=== PATIENT | female | born 1950 | race Caucasian/White ===

== ENCOUNTER → 2016-11-14 | Outpatient (CLI) | payer MEDICARE, OTHER ==
--- NOTE | 2016-11-17 08:24 | MM ---
Reason for exam: additional evaluation requested from prior study. Last mammogram was performed 1 year and 1 month ago. History: Patient is postmenopausal and has history of breast cancer at age 50. Family history of breast cancer in sister at age 49. Malignant excisional biopsy of the left breast, October 07, 2000. Benign stereotactic core biopsy of the left breast, April 11, 1999. Chemotherapy. Radiation therapy of the left breast. Took antineoplastic for 2 years. Physical Findings: Nurse did not find any significant physical abnormalities on exam. MG 3D Diag Mammo W/Cad CESIA Bilateral CC and MLO view(s) were taken. Prior study comparison: October 12, 2015, bilateral MG 3d diag mammo w/cad CESIA. October 05, 2014, bilateral MG diagnostic mammo w CAD CESIA. The breast tissue is almost entirely fat. Finding: Architectural distortion in the left breast consistent with previous surgery. No significant changes in finding since October 12, 2015 and October 05, 2014. These results were verbally communicated with the patient and result sheet given to the patient on 11/14/16. ASSESSMENT: Benign, BI-RAD 2 RECOMMENDATION: Follow-up diagnostic mammogram of both breasts in 1 year.
== END | disposition home or self-care (01) ==
LOC: RADMAMWWP 15:26
PROVIDERS: ATTEND Family Medicine
DX: Z08 Encounter for follow-up examination after completed treatment for malignant neoplasm (principal); Z85.3 Personal history of malignant neoplasm of breast
CPT/HCPCS: G0204; G0279

== ENCOUNTER 2016-12-22 10:34 | Day surgery (SDC) | payer MEDICARE, OTHER ==
[~2016-12-22 10:34] MED LIST: SODIUM CHLORIDE 0.9% 1,000 ML IV SCH
[2016-12-22 11:10] VITALS: RESP 16; TEMP 98
[2016-12-22 13:57] VITALS: BP 124/89; PULSE 70
--- NOTE | 2016-12-22 16:46 | CE ---
DATE OF SERVICE: TILT TABLE TEST: Referred by Dr. Mccabe A 12-lead ECG shows sinus rhythm, normal NC and narrow QRS, normal QT interval. Nonspecific ST-T abnormality, biphasic T waves in V3 to V6. No delta waves or epsilon waves. The tilt table test procedure. Baseline blood pressure 138/73 mmHg. Baseline heart rate 78 beats a minute. The patient was tilted upright at an angle of 70 degrees per protocol. There was no change in her heart rate or blood pressure. At the end of the procedure, she was laid supine, she remained asymptomatic. IMPRESSION: Normal heart rate and blood pressure response to upright tilting.
== END 2016-12-22 13:27 | disposition home or self-care (01) ==
LOC: CATHEP 10:34
PROVIDERS: ATTEND Internal Medicine Clinical Cardiac Electrophysiology
DX: I95.1 Orthostatic hypotension (principal); R42 Dizziness and giddiness
CPT/HCPCS: 93005; 93660

== ENCOUNTER → 2017-11-30 | Outpatient (CLI) | payer MEDICARE ==
--- NOTE | 2017-12-01 07:56 | MM ---
Reason for exam: additional evaluation requested from prior study. Last mammogram was performed 1 year and 1 month ago. History: Patient is postmenopausal and has history of breast cancer at age 50. Family history of breast cancer in sister at age 49. Malignant excisional biopsy of the left breast, October 07, 2000. Benign stereotactic core biopsy of the left breast, April 11, 1999. Chemotherapy. Radiation therapy of the left breast. Took antineoplastic for 2 years. Physical Findings: Nurse did not find any significant physical abnormalities on exam. MG 3D Diag Mammo W/Cad CESIA Bilateral CC and MLO view(s) were taken. Prior study comparison: November 14, 2016, bilateral MG 3d diag mammo w/cad CESIA. October 12, 2015, bilateral MG 3d diag mammo w/cad CESIA. There are scattered fibroglandular densities. Post surgical change redemonstrated left breast. Stable fat necrosis and oily cyst calcifications. No significant new findings when compared with previous films. These results were verbally communicated with the patient and result sheet given to the patient on 11/30/17. ASSESSMENT: Benign, BI-RAD 2 RECOMMENDATION: Routine screening mammogram of both breasts in 1 year.
== END | disposition home or self-care (01) ==
LOC: RADMAMWWP 14:09
PROVIDERS: ATTEND Family Medicine
DX: Z08 Encounter for follow-up examination after completed treatment for malignant neoplasm (principal); Z85.3 Personal history of malignant neoplasm of breast
CPT/HCPCS: 77066; G0279; 77062

== ENCOUNTER → 2018-12-27 | Outpatient (CLI) | payer MEDICARE ==
--- NOTE | 2018-12-27 16:25 | US ---
EXAMINATION TYPE: US venous doppler duplex LE LT DATE OF EXAM: 12/27/2018 3:49 PM COMPARISON: NONE CLINICAL HISTORY: M79.605 PAIN IN LT LEG. Pain in left leg. Varicose veins. SIDE PERFORMED: Left TECHNIQUE: The lower extremity deep venous system is examined utilizing real time linear array sonog geronimo with graded compression, doppler sonography and color-flow sonography. VESSELS IMAGED: External Iliac Vein (EIV) Common Femoral Vein Deep Femoral Vein Greater Saphenous Vein * Femoral Vein Popliteal Vein Small Saphenous Vein * Proximal Calf Veins (* superficial vessels) Left Leg: Negative for DVT Grayscale, color doppler, spectral doppler imaging performed of the deep veins of the left lower extr emity. There is normal flow, compressibility, vascular waveforms. IMPRESSION: No ultrasound evidence for acute DVT in the left lower extremity.
== END | disposition home or self-care (01) ==
LOC: RADUSWWP 15:00
PROVIDERS: ATTEND Family Medicine
DX: M79.605 Pain in left leg (principal)

== ENCOUNTER → 2019-01-10 | Outpatient (CLI) | payer MEDICARE ==
--- NOTE | 2019-01-12 08:11 | MM ---
Reason for exam: screening (asymptomatic). Last mammogram was performed 1 year and 1 month ago. History: Patient is postmenopausal and has history of breast cancer at age 50. Family history of breast cancer in sister at age 49. Malignant excisional biopsy of the left breast, October 07, 2000. Benign stereotactic core biopsy of the left breast, April 11, 1999. Chemotherapy. Radiation therapy of the left breast. Took antineoplastic for 2 years. Physical Findings: A clinical breast exam by your physician is recommended on an annual basis and results should be correlated with mammographic findings. MG 3D Screening Mammo W/Cad Bilateral CC and MLO view(s) were taken. Prior study comparison: November 14, 2016, bilateral MG 3d diag mammo w/cad CESIA. October 12, 2015, bilateral MG 3d diag mammo w/cad CESIA. October 05, 2014, bilateral MG diagnostic mammo w CAD CESIA. There are scattered fibroglandular densities. Post surgical and post therapy change left breast. No significant changes when compared with prior studies. ASSESSMENT: Benign, BI-RAD 2 RECOMMENDATION: Routine screening mammogram of both breasts in 1 year.
== END | disposition home or self-care (01) ==
LOC: RADMAMWWP 13:41
PROVIDERS: ATTEND Family Medicine
DX: Z12.31 Encounter for screening mammogram for malignant neoplasm of breast (principal)
CPT/HCPCS: 77063; 77067

== ENCOUNTER → 2019-01-10 | Outpatient (CLI) | payer MEDICARE ==
--- NOTE | 2019-01-10 15:11 | US ---
EXAMINATION TYPE: US thyroid st tissue head/neck DATE OF EXAM: 01/10/2019 COMPARISON: NONE CLINICAL HISTORY: R09.89, Feeling of lump in throat. No thyroid meds. GLAND SIZE: Right Lobe: 3.9 x 1.8 x 1.5 cm Overall Parenchyma: homogenous Left Lobe: 3.8 x 1.3 x 1.3 cm Overall Parenchyma: homogeneous Isthmus Thickness: 0.3 cm NODULES RIGHT: # of nodules measured on right: 0 LEFT: # of nodules measured on left: 1 1. 0.3 X 0.2 x 0.2 cm hypoechoic nodule at the mid pole with lateral margins. This nodule is tall as wide and shows no intranodular vascularity. Prior size: No prior ISTHMUS: # of nodules measured in the isthmus: 0 Bilateral neck scanned, no evidence of lymphadenopathy. IMPRESSION: Solitary subcentimeter left thyroid nodule. This does not meet criteria for fine-needle aspiration. F ollow-up in one year to ensure stability of this nodule.
== END | disposition home or self-care (01) ==
LOC: RADUSWWP 13:44
PROVIDERS: ATTEND Family Medicine
DX: E04.1 Nontoxic single thyroid nodule (principal); R09.89 Other specified symptoms and signs involving the circulatory and respiratory systems
CPT/HCPCS: 76536

== ENCOUNTER → 2020-01-25 | Outpatient (CLI) | payer MEDICARE | END | disposition home or self-care (01) | LOC: RADUSWWP 10:06 | PROVIDERS: ATTEND Family Medicine | DX: I73.9 Peripheral vascular disease, unspecified (principal); C50.919 Malignant neoplasm of unspecified site of unspecified female breast; E04.1 Nontoxic single thyroid nodule | CPT/HCPCS: 93923 ==

== ENCOUNTER → 2020-02-02 | Outpatient (CLI) | payer MEDICARE ==
--- NOTE | 2020-02-02 15:55 | US ---
EXAMINATION TYPE: US thyroid st tissue head/neck DATE OF EXAM: 02/02/2020 COMPARISON: NONE CLINICAL HISTORY: E04.1 Nontoxic single thyroid nodule. annual US GLAND SIZE: Right Lobe: 3.9 x 1.7 x 1.6 cm Overall Parenchyma: homogenous Left Lobe: 3.7 x 0.9 x 1.3 cm Overall Parenchyma: homogeneous Isthmus Thickness: 0.4 cm NODULES RIGHT: # of nodules measured on right: 0 LEFT: # of nodules measured on left: 0 ISTHMUS: # of nodules measured in the isthmus: 0 Bilateral neck scanned, no evidence of lymphadenopathy. IMPRESSION: Multiple thyroid ultrasound
== END | disposition home or self-care (01) ==
LOC: RADUSWWP 15:15
PROVIDERS: ATTEND Family Medicine
DX: E04.2 Nontoxic multinodular goiter (principal)
CPT/HCPCS: 76536

== ENCOUNTER → 2020-06-08 | Outpatient (CLI) | payer MEDICARE ==
--- NOTE | 2020-06-11 09:34 | MM ---
Reason for exam: additional evaluation requested from prior study. Last mammogram was performed 1 year and 5 months ago. History: Patient is postmenopausal and has history of breast cancer at age 50. Family history of breast cancer in sister at age 49. Malignant excisional biopsy of the left breast, October 07, 2000. Benign stereotactic core biopsy of the left breast, April 11, 1999. Chemotherapy. Radiation therapy of the left breast. Took antineoplastic for 2 years. Physical Findings: Nurse Summary: 0.5cm nodule in the left breast at 12 o'clocj (nurse TM). MG 3D Diag Mammo W/Cad CESIA Bilateral CC and MLO view(s) were taken. Prior study comparison: January 10, 2019, bilateral MG 3d screening mammo w/cad. November 30, 2017, bilateral MG 3d diag mammo w/cad CESIA. There are scattered fibroglandular densities. Asymmetric breast tissue greater in the left breast. There is no discrete abnormality including area of concern marked by BB. No significant new findings when compared with previous films. These results were verbally communicated with the patient and result sheet given to the patient on 06/08/20. ASSESSMENT: Benign, BI-RAD 2 RECOMMENDATION: Follow-up diagnostic mammogram of both breasts in 1 year.
== END | disposition home or self-care (01) ==
LOC: RADMAMWWP 14:05
PROVIDERS: ATTEND Family Medicine
DX: C50.919 Malignant neoplasm of unspecified site of unspecified female breast (principal)
CPT/HCPCS: 77066; G0279; 77062

== ENCOUNTER → 2021-04-19 | Outpatient (CLI) | payer MEDICARE ==
--- NOTE | 2021-04-19 13:41 | US ---
EXAMINATION TYPE: US thyroid st tissue head/neck DATE OF EXAM: 04/19/2021 COMPARISON: US's dated 02/02/2020 & 01/10/2019. CLINICAL HISTORY: E04.1 Nontoxic single thyroid nodule. GLAND SIZE: Right Lobe: 4.5 x 1.6 x 1.9 cm Overall Parenchyma: homogenous Left Lobe: 4.8 x 1.1 x 1.4 cm Overall Parenchyma: homogeneous Isthmus Thickness: 0.4 cm NODULES RIGHT: # of nodules measured on right: 1 1. 0.5 X 0.3 x 0.5 cm, lower medial, cystic or almost completely cystic, hypoechoic nodule, which i s wider than tall, with smooth margins, without echogenic foci. Prior size: not seen on prior LEFT: # of nodules measured on left: 0 ISTHMUS: # of nodules measured in the isthmus: 0 Bilateral neck scanned, no evidence of lymphadenopathy. IMPRESSION: Subcentimeter right thyroid nodule measuring a maximal dimension of 5 mm. Mild thyromegaly. 2017 ACR TI-RADS LEVEL: TR-RADS 2 - Not Suspicious: No FNA *Highest TI-RADS level nodule reported
== END | disposition home or self-care (01) ==
LOC: RADUSWWP 12:58
PROVIDERS: ATTEND Family Medicine
DX: E04.1 Nontoxic single thyroid nodule (principal)
CPT/HCPCS: 76536

== ENCOUNTER → 2021-06-10 | Outpatient (CLI) | payer MEDICARE ==
--- NOTE | 2021-06-10 15:07 | MM ---
Reason for exam: additional evaluation requested from prior study. Last mammogram was performed 1 year ago. History: Patient is postmenopausal and has history of breast cancer at age 50. Family history of breast cancer in sister at age 49. Malignant excisional biopsy of the left breast, October 07, 2000. Benign stereotactic core biopsy of the left breast, April 11, 1999. Chemotherapy. Radiation therapy of the left breast. Took antineoplastic for 2 years. Physical Findings: Nurse did not find any significant physical abnormalities on exam. MG 3D Diag Mammo W/Cad CESIA Bilateral CC and MLO view(s) were taken. Prior study comparison: June 08, 2020, bilateral MG 3d diag mammo w/cad CESIA. January 10, 2019, bilateral MG 3d screening mammo w/cad. The breast tissue is heterogeneously dense. This may lower the sensitivity of mammography. Stable benign calcifications. Stable post operative changes left breast. No significant new findings when compared with previous films. These results were verbally communicated with the patient and result sheet given to the patient on 06/10/21. ASSESSMENT: Benign, BI-RAD 2 RECOMMENDATION: Routine screening mammogram of both breasts in 1 year.
== END | disposition home or self-care (01) ==
LOC: RADMAMWWP 13:44
PROVIDERS: ATTEND Family Medicine
DX: R92.1 Mammographic calcification found on diagnostic imaging of breast (principal)
CPT/HCPCS: 77066; G0279; 77062

== ENCOUNTER 2021-12-04 09:53 | Day surgery (SDC) | payer MEDICARE ==
[2021-12-03 08:28] VITALS: BMI 29.2
[~2021-12-04 09:53] MED LIST changes: +ASPIRIN 325 MG TAB PO PRN; -SODIUM CHLORIDE 0.9% 1,000 ML IV SCH; +SODIUM CHLORIDE 0.9% 1,000 ML in EMPTY BAG 1 BAG IV ONE
[2021-12-04 10:16] LABS: Glucose,Whole Blood 127 mg/dL (75-99)
[2021-12-04 11:41] LABS: African American GFR (CKD) >90 (>60 ml/min/1.73 sqM); Anion Gap 3 mmol/L; Blood Urea Nitrogen 26 mg/dL (7-17); Calcium 9.4 mg/dL (8.4-10.2); Carbon Dioxide 28 mmol/L (22-30); Chloride 110 mmol/L (98-107); Glucose 114 mg/dL (74-99); Non-African American GFR(CKD) 88 (>60 ml/min/1.73 sqM); Potassium 3.9 mmol/L (3.5-5.1); Sodium 141 mmol/L (137-145)
[2021-12-04] MEDS ORDERED: HEPARIN SODIUM 1,000 UN/ML (10ML VL) ONE (12:22)
[2021-12-04] MEDS ORDERED: MIDAZOLAM 2 MG/2 ML VIAL IV ONE (12:37)
[2021-12-04] MEDS ORDERED: LIDOCAINE 1% INJ 10MG/ML (30 ML VIAL-PF) SQ ONE (12:38)
[2021-12-04] MEDS ORDERED: HYDROmorphone 0.5 MG/0.5 ML SYRINGE IVP ONE (12:39)
[2021-12-04] MEDS ORDERED: HEPARIN SODIUM 1,000 UN/ML (10ML VL) IV ONE (12:55)
[2021-12-04] MEDS ORDERED: CLOPIDOGREL 75 MG TAB ONE ×2 (13:40)
[2021-12-04] MEDS ORDERED: CLOPIDOGREL 75 MG TAB PO ONE (13:42)
[2021-12-04] MEDS ORDERED: IOPAMIDOL-250 100ML BTL INTRAARTER ONE (13:42)
[2021-12-04] MEDS ORDERED: MECLIZINE 25 MG TAB PO PRN (13:46)
[2021-12-04] MEDS ORDERED: NALOXONE 0.4 MG/ML 1 ML VIAL IVP PRN (13:48)
--- NOTE | 2021-12-04 13:55 | P.PCN ---
Date of Procedure: 12/04/21 Operative Findings: PERCUTANEOUS PERIPHERAL INTERVENTION Performing physician Danyel Guerrier M.D. Procedure performed #1 successful stenting of the right and left common iliac arteries using 7.0 x 59 mm balloon expandable stent with an excellent angiographic result #2 intravascular ultrasound of the aorta and left common iliac and left external iliac artery #3 selective angiogram of the right and left common iliac arteries and external iliac arteries and common femoral arteries #4 ultrasound-guided access of the right and left common femoral arteries Indication Severe bilateral lower extremities intermittent claudication in this 71-year-old female patient was underwent an angiogram which revealed critical right iliac and occluded left iliac artery and also occluded bilateral SFA and left popliteal Approach Right and left common femoral arteries Complications None Level of sedation Moderate with a sedation time of 63 minutes Procedure description After obtaining an informed consent the patient was brought to the cardiac lab engineer. The right and left common femoral artery where cannulated using micropuncture technique under ultrasound guidance, the micropuncture wire passed easily then place a 6-[place]oz[place] 23 cm bright tip at the right and left common femoral arteries or 035 wires. The lesion in the left common iliac artery was crossed using an 035 stiff Glidewire. Subsequently I did advanced an 035 catheter over the wire and injected contrast through the catheter to prove that I was in the true lumen. After that I did intravascular ultrasound of the left common iliac artery which revealed a diameter of 8 mm. Subsequently I did balloon angioplasty of both iliacs using 6 mm balloon. After that I deployed 7.0 x 59 mm stent which was balloon expandable stents in both stents were positioned under fluoroscopy guidance and deployed under fluoroscopy guidance as well. I postdilated using 8 mm balloon. The stents and the balloon done in a kissing technique. The final angiogram showed excellent angiographic results and the procedure was completed without any complications After that I did exchange my long sheath into short sheath using 035 stiff Glidewire then I did selective bilateral common femoral arteries angiogram The procedure was completed without any complications Postprocedure management #1 dual antiplatelet therapy #2 aggressive cholesterol control #3 risk factors modification #4 follow-up with the patient
[2021-12-04] MEDS ORDERED: SODIUM CHLORIDE 0.9% 1,000 ML in EMPTY BAG 1 BAG IV SCH (14:00)
[2021-12-04 17:17] LABS: Glucose,Whole Blood 187 mg/dL (75-99)
[2021-12-04 19:55] LABS: Glucose,Whole Blood 282 mg/dL (75-99)
[2021-12-04] MEDS ORDERED: ATORVASTATIN 40 MG TAB PO SCH (21:00)
[2021-12-04] MEDS ORDERED: ALPRAZolam 0.5 MG TAB PO SCH (21:00)
[2021-12-05 07:35] LABS: Glucose,Whole Blood 128 mg/dL (75-99)
[2021-12-05] MEDS ORDERED: ACETAMINOPHEN TAB 325 MG TAB PO PRN (07:57)
[2021-12-05 08:25] VITALS: BP 119/72; PULSE 93; RESP 17; TEMP 98.3
[2021-12-05] MEDS ORDERED: NON FORMULARY DRUG (Flaxseed Oil [Omega-3 Flaxseed Oil] 1,000 MG Capsule) PO SCH (09:00)
[2021-12-05] MEDS ORDERED: LOSARTAN 50 MG TAB PO SCH (09:00)
[2021-12-05] MEDS ORDERED: MONTELUKAST 10 MG TAB PO SCH (09:00)
[2021-12-05] MEDS ORDERED: ASCORBIC ACID 500 MG TAB PO SCH (09:00)
[2021-12-05] MEDS ORDERED: [UNRECOGNIZED DRUG - OTHER] PO SCH (09:00)
[2021-12-05] MEDS ORDERED: FENOFIBRATE 160 MG TAB PO SCH (09:00)
[2021-12-05] MEDS ORDERED: CLOPIDOGREL 75 MG TAB PO SCH (09:00)
[2021-12-05] MEDS ORDERED: LORATADINE 10 MG TAB PO SCH (09:00)
[2021-12-05] MEDS ORDERED: FATTY ACIDS PO SCH (09:00)
[2021-12-05] MEDS ORDERED: NON FORMULARY DRUG (Vitamin B Complex [Vitamin B Complex] 1 EACH Capsule) PO SCH (09:00)
[2021-12-05] MEDS ORDERED: FISH OIL PO SCH (09:00)
[2021-12-05] MEDS ORDERED: CALCIUM CARBONATE 500 MG CHEWABLE PO SCH (09:00)
[2021-12-05] MEDS ORDERED: CHOLECALCIFEROL 25 MCG (1000 IU) TABLET PO SCH (09:00)
[2021-12-05] MEDS ORDERED: OMEGA PO SCH (09:00)
--- NOTE | 2021-12-05 09:21 | US ---
EXAMINATION TYPE: US groin LT DATE OF EXAM: 12/05/2021 COMPARISON: NONE CLINICAL HISTORY: Rule out aneurysm. Left side pain iliac stents put in yesterday. Exam appears within normal limits. IMPRESSION: 1. Vascular flow appears normal. No obstruction is evident. No pseudoaneurysm is evident.
[2021-12-05] MEDS ORDERED: ASPIRIN 81 MG PO SCH (12:30)
[2021-12-05 14:54] LABS: Glucose,Whole Blood 110 mg/dL (75-99)
[2021-12-05 16:58] LABS: African American GFR (CKD) >90 (>60 ml/min/1.73 sqM); Non-African American GFR(CKD) 85 (>60 ml/min/1.73 sqM)
--- NOTE | 2021-12-05 21:28 | P.DS ---
Providers Attending physician: Danyel Guerrier Primary care physician: [facility] Course: The patient is a pleasant 81-year-old female patient who underwent yesterday successful stenting of the right and left common iliac arteries from bilateral groin approach She was seen this morning. The right groin is soft and nontender. Left groin is soft and tender. I was concerned about pseudoaneurysm. I performed an ultrasound and that came in to be unremarkable. The patient felt better later on during the day. She is going to be discharged on dual antiplatelet therapy and statin and follow up with the patient in a week Plan - Discharge Summary Discharge Rx Participant: No New Discharge Prescriptions: New Clopidogrel [Plavix] 75 mg PO DAILY tab Continue Alendronate Sodium 70 mg PO WE Atorvastatin [Lipitor] 40 mg PO HS Calcium Carbonate [Calcium] 600 mg PO DAILY Cholecalciferol (Vitamin D3) [Vitamin D3] 4,000 unit PO DAILY Fenofibrate 160 mg PO DAILY flaxseed oiL [[place]-3 Flaxseed Oil] 1,300 mg PO DAILY Loratadine 10 mg PO DAILY Montelukast [Singulair] 10 mg PO DAILY [place]-3 Fatty Acids/Fish Oil [Fish Oil 1,000 mg Capsule] 1 cap PO DAILY Vitamin B Complex 1 cap PO DAILY ALPRAZolam [Xanax] 0.5 mg PO HS Ascorbic Acid [Vitamin C] 1,000 mg PO DAILY Losartan Potassium [Cozaar] 100 mg PO DAILY Meclizine [Antivert] 25 mg PO DAILY PRN PRN Reason: dizziness Aspirin [Adult Low Dose Aspirin EC] 81 mg PO W/LUNCH Discontinued metFORMIN HCL [Glucophage] 1,000 mg PO AC-LUNCH Discharge Medication List Alendronate Sodium 70 mg PO WE 12/19/16 [History] Atorvastatin [Lipitor] 40 mg PO HS 12/19/16 [History] Calcium Carbonate [Calcium] 600 mg PO DAILY 12/19/16 [History] Cholecalciferol (Vitamin D3) [Vitamin D3] 4,000 unit PO DAILY 12/19/16 [History] Fenofibrate 160 mg PO DAILY 12/19/16 [History] Loratadine 10 mg PO DAILY 12/19/16 [History] Montelukast [Singulair] 10 mg PO DAILY 12/19/16 [History] [place]-3 Fatty Acids/Fish Oil [Fish Oil 1,000 mg Capsule] 1 cap PO DAILY 12/19/16 [History] Vitamin B Complex 1 cap PO DAILY 12/19/16 [History] flaxseed oiL [[place]-3 Flaxseed Oil] 1,300 mg PO DAILY 12/19/16 [History] ALPRAZolam [Xanax] 0.5 mg PO HS 11/22/21 [History] Ascorbic Acid [Vitamin C] 1,000 mg PO DAILY 11/22/21 [History] Aspirin [Adult Low Dose Aspirin EC] 81 mg PO W/LUNCH 11/22/21 [History] Losartan Potassium [Cozaar] 100 mg PO DAILY 11/22/21 [History] Meclizine [Antivert] 25 mg PO DAILY PRN 11/22/21 [History] Clopidogrel [Plavix] 75 mg PO DAILY tab 12/05/21 [Rx] Follow up Appointment(s)/Referral(s): Danyel Guerrier MD [STAFF PHYSICIAN] - 12/07/21 9:15 am Patient Instructions/Handouts: *Surgery [facility] - After Heart Catheterization - Service Tech Instructions Activity/Diet/Wound Care/Special Instructions: Please hold your metformin for 2 days and then you can restart. Plavix Prescription- Please use paper script by Dr. Guerrier to obtain prescription You may take tylenol for pain Discharge Disposition: HOME SELF-CARE
--- NOTE | 2021-12-06 12:29 | IR ---
EXAMINATION TYPE: IR stent intravas non coronary DATE OF EXAM: 12/04/2021 CLINICAL HISTORY: Bilateral pain. TECHNIQUE: Fluoroscopy. COMPARISON: None. FINDINGS: Fluoroscopic guidance was provided during pelvic angiogram with lower extremity angiogram procedure performed by Dr. Guerrier. A total of 12.9 minutes of fluoroscopic time was utilized during t he procedure and 2026 spot images are acquired. Please refer to procedure note for further details. IMPRESSION: As Above.
[2021-12-11] MEDS ORDERED: NON FORMULARY DRUG (Alendronate Sodium [Alendronate Sodium] 70 MG Tablet) PO SCH (09:00)
== END 2021-12-05 15:40 | disposition home or self-care (01) ==
LOC: CATHCVL 09:53 → 6NMEDSUR 15:12 → CATHCVL 12-05 15:40
PROVIDERS: ATTEND Internal Medicine Interventional Cardiology
DX: I70.213 Atherosclerosis of native arteries of extremities with intermittent claudication, bilateral legs (principal); E11.51 Type 2 diabetes mellitus with diabetic peripheral angiopathy without gangrene; I10 Essential (primary) hypertension; E78.5 Hyperlipidemia, unspecified; Z20.822 Contact with and (suspected) exposure to COVID-19; Z79.899 Other long term (current) drug therapy; Z79.84 Long term (current) use of oral hypoglycemic drugs; Z79.82 Long term (current) use of aspirin; Z82.49 Family history of ischemic heart disease and other diseases of the circulatory system
CPT/HCPCS: 37221; 37252; 80048; 82565; 87635; 76882; C1769 ×5; C1894 ×2; C1725; C1753; C1876; C1760; J2250; J2001; J1644; J1170; Q9966

== ENCOUNTER 2022-02-20 08:03 | Day surgery (SDC) | payer MEDICARE ==
[2022-02-19 09:12] VITALS: BMI 28.8
--- NOTE | 2022-02-20 07:22 | P.GSHP ---
History of Present Illness H&P Date: 02/20/22 CHIEF COMPLAINT: Colon screen HISTORY OF PRESENT ILLNESS: The patient is a 71-year-old female who presents for colon screen. Lower endoscopy was offered for further evaluation and management. PAST MEDICAL HISTORY: Please see list. PAST SURGICAL HISTORY: Please see list. MEDICATIONS: Please see list. ALLERGIES: Please see list. SOCIAL HISTORY: No illicit drug use FAMILY HISTORY: No reports of Crohn disease or ulcerative colitis. REVIEW OF ORGAN SYSTEMS: CONSTITUTIONAL: No reports of fevers or chills. PHYSICAL EXAM: VITAL SIGNS: Stable GENERAL: Well-developed pleasant in no acute distress. HEENT: No scleral icterus. Extraocular movements grossly intact. Moist buccal mucosa. NECK: Supple without lymphadenopathy. CHEST: Unlabored respirations. Equal bilateral excursions. CARDIOVASCULAR: Regular rate and rhythm. Distal 2+ pulses. ABDOMEN: Soft, nontender, nondistended. MUSCULOSKELETAL: No clubbing, cyanosis, or edema. ASSESSMENT: 1. Colon screen. PLAN: 1. Recommend proceeding with a lower endoscopy Past Medical History Past Medical History: Cancer, Diabetes Mellitus, Hyperlipidemia, Hypertension, Vascular Disorder Additional Past Medical History / Comment(s): Hx left breast cancer- tx with CHEMO and RADIATION, vertigo. History of Any Multi-Drug Resistant Organisms: None Reported Past Surgical History: Breast Surgery, Orthopedic Surgery Additional Past Surgical History / Comment(s): Left breast lumpectomy, left ankle ORIF, benign left groin tumor removed, has 1 stent in each leg. Past Anesthesia/Blood Transfusion Reactions: No Reported Reaction Past Psychological History: No Psychological Hx Reported Smoking Status: Former smoker Past Alcohol Use History: Rare Additional Past Alcohol Use History / Comment(s): Quit smoking in her 20's. Past Drug Use History: None Reported - Past Family History Sister(s) Family Medical History: Cancer Brother(s) Family Medical History: Cancer Mother Family Medical History: Cancer, CVA/TIA Medications and Allergies Home Medications Medication Instructions Recorded Confirmed Type Alendronate Sodium 70 mg PO WE 12/19/16 02/14/22 History Atorvastatin [Lipitor] 40 mg PO HS 12/19/16 02/14/22 History Calcium Carbonate [Calcium] 600 mg PO DAILY 12/19/16 02/19/22 History Cholecalciferol (Vitamin D3) 3,000 unit PO DAILY 12/19/16 02/19/22 History [Vitamin D3] Fenofibrate 160 mg PO DAILY 12/19/16 02/14/22 History Loratadine 10 mg PO DAILY 12/19/16 02/14/22 History Montelukast [Singulair] 10 mg PO QAM 12/19/16 02/14/22 History Vitamin B Complex 1 cap PO DAILY 12/19/16 02/19/22 History ALPRAZolam [Xanax] 0.5 mg PO HS 11/22/21 02/14/22 History Ascorbic Acid [Vitamin C] 1,000 mg PO DAILY 11/22/21 02/19/22 History Aspirin [Adult Low Dose Aspirin EC] 81 mg PO W/LUNCH 11/22/21 02/19/22 History Losartan Potassium [Cozaar] 100 mg PO QAM 11/22/21 02/14/22 History Meclizine [Antivert] 25 mg PO DAILY PRN 11/22/21 02/04/22 History Clopidogrel [Plavix] 75 mg PO DAILY tab 12/05/21 02/19/22 Rx metFORMIN HCL [Glucophage] 1,000 mg PO 1200 02/14/22 02/19/22 History Allergies Allergy/AdvReac Type Severity Reaction Status Date / Time No Known Allergies Allergy Verified 02/19/22 08:46
[~2022-02-20 08:03] MED LIST changes: -ASPIRIN 325 MG TAB PO PRN; +LACTATED RINGERS 1,000 ML IV SCH; +LIDOCAINE 1% (10MG/ML) FOR IV START INTRADERMA PRN; -SODIUM CHLORIDE 0.9% 1,000 ML in EMPTY BAG 1 BAG IV ONE
[2022-02-20 08:38] VITALS: TEMP 97.3
[2022-02-20] MEDS ORDERED: LIDOCAINE 2% INJ 20 MG/ML (2 ML VIAL) ONE (08:59)
[2022-02-20] MEDS ORDERED: PROPOFOL 10 MG/ML 20 ML VIAL IV ONE (08:59)
[2022-02-20 09:35] VITALS: RESP 16
--- NOTE | 2022-02-20 09:41 | P.PCN ---
Date of Procedure: 02/20/22 Description of Procedure: PREOPERATIVE DIAGNOSIS: Personal history of colon polyps Family history malignant colon polyps Abnormal fecal studies POSTOPERATIVE DIAGNOSIS: Tubular adenoma hepatic flexure Sigmoid diverticulosis Internal hemorrhoids, grade 3 OPERATION: Colonoscopy to the ileocecal valve and appendiceal orifice, cecum Colonoscopy with hot snare polypectomy SURGEON: Jennifer Strauss MD. ANESTHESIA: MAC. INDICATIONS: The patient is an 71-year-old male who presents family history of malignant colon polyps and personal history of colon polyps. Last colonoscopy over 5 years. Benefits and risks were described and informed consent was obtained. DESCRIPTION OF PROCEDURE: The patient had undergone Sutab prep. The patient had been brought into the operating room and laid in the left lateral decubitus position. After adequate intravenous sedation, the rectum was examined with 2% lidocaine jelly. External hemorrhoids were encountered. The rectal tone was within normal limits. No lesions were palpated in the rectal vault. An Olympus colonoscope was advanced until the cecum, ileocecal valve and appendiceal orifice were clearly viewed. The prep was fair. Sigmoid diverticulosis was encountered. Colonic polyps were found and removed. No evidence of focal colitis was found. Retroflexion of the scope demonstrated grade 3 internal hemorrhoids without active bleeding or inflammation. The colon was desufflated. Withdrawal time was over 6 minutes. During procedure, patient had emesis. Patient reports she had drank fluids prior to procedure. FINDINGS: Aronchick preparation quality scale 2+ (1-5) Internal hemorrhoids, grade 3 External hemorrhoids, grade 3. No arteriovenous malformations. Sigmoid diverticulosis Removal of 2 polyps: - Snare polypectomy transverse colon 2, 5 to 6 mm tubulovillous adenoma polyp. No focal colitis. RECOMMENDATIONS: Repeat colonoscopy in 3 years, 2024. Plan - Discharge Summary Discharge Rx Participant: No New Discharge Prescriptions: Continue Alendronate Sodium 70 mg PO WE Atorvastatin [Lipitor] 40 mg PO HS Calcium Carbonate [Calcium] 600 mg PO DAILY Cholecalciferol (Vitamin D3) [Vitamin D3] 3,000 unit PO DAILY Fenofibrate 160 mg PO DAILY Loratadine 10 mg PO DAILY Montelukast [Singulair] 10 mg PO QAM Vitamin B Complex 1 cap PO DAILY ALPRAZolam [Xanax] 0.5 mg PO HS Ascorbic Acid [Vitamin C] 1,000 mg PO DAILY Losartan Potassium [Cozaar] 100 mg PO QAM Meclizine [Antivert] 25 mg PO DAILY PRN PRN Reason: dizziness Clopidogrel [Plavix] 75 mg PO DAILY tab metFORMIN HCL [Glucophage] 1,000 mg PO 1200 Aspirin [Adult Low Dose Aspirin EC] 81 mg PO W/LUNCH Discharge Medication List Alendronate Sodium 70 mg PO WE 12/19/16 [History] Atorvastatin [Lipitor] 40 mg PO HS 12/19/16 [History] Calcium Carbonate [Calcium] 600 mg PO DAILY 12/19/16 [History] Cholecalciferol (Vitamin D3) [Vitamin D3] 3,000 unit PO DAILY 12/19/16 [History] Fenofibrate 160 mg PO DAILY 12/19/16 [History] Loratadine 10 mg PO DAILY 12/19/16 [History] Montelukast [Singulair] 10 mg PO QAM 12/19/16 [History] Vitamin B Complex 1 cap PO DAILY 12/19/16 [History] ALPRAZolam [Xanax] 0.5 mg PO HS 11/22/21 [History] Ascorbic Acid [Vitamin C] 1,000 mg PO DAILY 11/22/21 [History] Aspirin [Adult Low Dose Aspirin EC] 81 mg PO W/LUNCH 11/22/21 [History] Losartan Potassium [Cozaar] 100 mg PO QAM 11/22/21 [History] Meclizine [Antivert] 25 mg PO DAILY PRN 11/22/21 [History] Clopidogrel [Plavix] 75 mg PO DAILY tab 12/05/21 [Rx] metFORMIN HCL [Glucophage] 1,000 mg PO 1200 02/14/22 [History] Follow up Appointment(s)/Referral(s): Jennifer Strauss MD [STAFF PHYSICIAN] - As Needed Patient Instructions/Handouts: Colorectal Polyps (GEN), *Surgery [facility] - (Anesthesia) Endoscopy Discharge Instructions, Colonoscopy (DC) Activity/Diet/Wound Care/Special Instructions: Repeat colonoscopy in 3 years, 2024 Discharge Disposition: HOME SELF-CARE
[2022-02-20 10:06] VITALS: BP 160/86; PULSE 79
== END 2022-02-20 10:22 | disposition home or self-care (01) ==
LOC: ORWHC2ENDO 08:03
PROVIDERS: ATTEND Surgery Plastic and Reconstructive Surgery
DX: R19.5 Other fecal abnormalities (principal); D12.3 Benign neoplasm of transverse colon; K57.30 Diverticulosis of large intestine without perforation or abscess without bleeding; K64.2 Third degree hemorrhoids; K64.4 Residual hemorrhoidal skin tags; Z86.010 Personal history of colon polyps; Z80.0 Family history of malignant neoplasm of digestive organs; E11.9 Type 2 diabetes mellitus without complications; E78.5 Hyperlipidemia, unspecified; I10 Essential (primary) hypertension; F41.9 Anxiety disorder, unspecified; Z85.3 Personal history of malignant neoplasm of breast; Z92.21 Personal history of antineoplastic chemotherapy; Z92.3 Personal history of irradiation; I99.9 Unspecified disorder of circulatory system; Z95.820 Peripheral vascular angioplasty status with implants and grafts; Z98.890 Other specified postprocedural states; Z80.9 Family history of malignant neoplasm, unspecified; Z82.3 Family history of stroke; Z79.84 Long term (current) use of oral hypoglycemic drugs; Z79.02 Long term (current) use of antithrombotics/antiplatelets; Z79.899 Other long term (current) drug therapy
CPT/HCPCS: 88305; 45385; J2704; J2001

== ENCOUNTER → 2022-11-19 | Outpatient (CLI) | payer MEDICARE ==
[2022-11-19 21:09] LABS: African American GFR (CKD) 76.2 (60.0-200.0); Anion Gap 10.8 mmol/L (10.00-18.00); Blood Urea Nitrogen 24.3 mg/dL (9.0-27.0); Carbon Dioxide 26.1 mmol/L (20.0-27.5); Non-African American GFR(CKD) 65.7 (60.0-200.0); Potassium 4.7 mmol/L (3.5-5.5)
[2022-11-19 21:39] LABS: HCT 41.6 % (37.2-46.3); HGB 12.8 g/dL (12.0-15.0); MCH 28.3 pg (27.0-32.0); MCHC 30.8 g/dL (32.0-37.0); Mean Platelet Volume 10.4 fL (9.5-12.2); NRBC Per 100 WBC 0 /100 WBCS (0.0-0.0); Platelet Count 322 X 10*3/uL (140-440); RBC 4.52 X 10*6/uL (4.10-5.20); RDW 12.8 % (11.5-14.5); WBC 7.43 X 10*3/uL (4.50-10.00)
== END | disposition home or self-care (01) ==
LOC: LABPAT 14:59
PROVIDERS: ATTEND Internal Medicine Interventional Cardiology
DX: Z01.812 Encounter for preprocedural laboratory examination (principal); I70.213 Atherosclerosis of native arteries of extremities with intermittent claudication, bilateral legs
CPT/HCPCS: 80051; 82565; 84520; 85027

== ENCOUNTER 2022-11-26 07:37 | Day surgery (SDC) | payer MEDICARE ==
[2022-11-24 09:40] VITALS: BMI 28.3
[~2022-11-26 07:37] MED LIST changes: +ALPRAZolam 0.25 MG TAB PO PRN; +ASPIRIN 325 MG TAB PO PRN; -LACTATED RINGERS 1,000 ML IV SCH; -LIDOCAINE 1% (10MG/ML) FOR IV START INTRADERMA PRN; +SODIUM CHLORIDE 0.9% 1,000 ML in EMPTY BAG 1 BAG IV ONE
[2022-11-26] MEDS ORDERED: SODIUM CHLORIDE 0.9% 1,000 ML IV ONE (08:02)
[2022-11-26] MEDS ORDERED: CLOPIDOGREL 75 MG TAB ONE ×2 (08:08→12:51)
[2022-11-26 08:16] LABS: Glucose,Whole Blood 108 mg/dL (70-110)
[2022-11-26] MEDS ORDERED: LIDOCAINE 1% INJ 10MG/ML (20 ML MDV) ONE (09:43)
[2022-11-26] MEDS ORDERED: LIDOCAINE 1% INJ 10MG/ML (20 ML MDV) SQ ONE (09:50)
[2022-11-26] MEDS ORDERED: MIDAZOLAM 2 MG/2 ML VIAL IV ONE (09:50)
[2022-11-26] MEDS ORDERED: HEPARIN SODIUM 1,000 UN/ML (10ML VL) ONE (09:56)
[2022-11-26] MEDS: HEPARIN SODIUM 1,000 UN/ML (10ML VL) IV ONE ×3 (10:02→11:04)
[2022-11-26] MEDS ORDERED: SODIUM CHLORIDE 0.9% 500 ML 500 ML with niCARdipine 6.25 MG, NITROGLYCERIN-D5W PMX 0.05... IV ONE ×4 (10:40)
[2022-11-26] MEDS ORDERED: HYDROmorphone 0.5 MG/0.5 ML SYRINGE IVP ONE ×3 (11:54→15:13)
[2022-11-26] MEDS ORDERED: fentaNYL (PF) 50 MCG/ML 2 ML AMP ONE (11:55)
[2022-11-26] MEDS: fentaNYL (PF) 50 MCG/ML 2 ML AMP IVP ONE ×2 (11:56→12:23)
[2022-11-26] MEDS ORDERED: HEPARIN SODIUM 1,000 UN/ML (10ML VL) IVP ONE ×2 (12:00→12:07)
[2022-11-26] MEDS ORDERED: IOPAMIDOL-250 100ML BTL INTRAARTER ONE ×2 (12:24)
[2022-11-26] MEDS ORDERED: niCARdipine 25 MG/10 ML VIAL ONE (12:34)
[2022-11-26] MEDS ORDERED: niCARdipine Syringe (1,000 mcg/10 mL) INTRAARTER ONE (12:35)
[2022-11-26] MEDS ORDERED: NITROGLYCERIN 1000MCG/10ML SYRINGE INTRAARTER ONE (12:35)
[2022-11-26] MEDS ORDERED: MECLIZINE 25 MG TAB PO PRN (12:46)
[2022-11-26] MEDS ORDERED: NALOXONE 0.4 MG/ML 1 ML VIAL IVP PRN (12:50)
[2022-11-26] MEDS ORDERED: CLOPIDOGREL 75 MG TAB PO ONE (12:52)
[2022-11-26] MEDS ORDERED: SODIUM CHLORIDE 0.9% 1,000 ML in EMPTY BAG 1 BAG IV SCH (13:00)
--- NOTE | 2022-11-26 13:48 | IR ---
EXAMINATION TYPE: IR stent intravas non coronary DATE OF EXAM: 11/26/2022 COMPARISON: NONE HISTORY: Fluoroscopy time. Fluoroscopy was provided to the referring clinician.
[2022-11-26 17:54] LABS: Glucose,Whole Blood 137 mg/dL (70-110)
--- NOTE | 2022-11-26 19:13 | P.PCN ---
Date of Procedure: 11/26/22 Operative Findings: PERCUTANEOUS PERIPHERAL INTERVENTION Performing physician Danyel Guerrier M.D. Procedure performed 1. Successful stenting left popliteal and left SFA using ZilverPTX drug-coated stents 2. Adjunctive use of shockwave balloon and IVUS 3. Left lower extremity angiogram 4. Right common femoral artery angiogram 5. Ultrasound guided access of the right common femoral artery and left anterior tibial are 6. Placement of sheath in the left anterior tibial artery Indication Left lower extremities intermittent claudication in this 72-year-old female patient who is known to have severe PAD and known to have occluded left SFA. She was brought today to undergo SENIOR CONSTRUCTION ESTIMATOR of the left SFA Approach Right common femoral artery and left anterior tibial artery Complications None Level of sedation Moderate with a sedation time of 2 hours Procedure description After obtaining an informed consent the patient was brought to cardiac roofing laborer. The right common femoral artery was cannulated using micropuncture technique under ultrasound guidance, the micropuncture wire passed easily then I placed a 6-[place] 70 cm sheath. Anticoagulation was initiated using heparin with continuous ACT monitoring. Subsequently I did selective left common iliac artery using 5-[place] rim catheter with 035 stiff Glidewire. After that I did advanced the over the wire and the catheter to the left common femoral artery. Subsequently the wire and dilator were removed and the sheath was flushed. Left lower oximetry angiogram was performed and showed long area of chronic total occlusion of the left SFA and left popliteal. Attempting crossing the CONVEYOR CONSOLE OPERATOR in antegrade technique was unsuccessful. At that point I decided to cross the CONVEYOR CONSOLE OPERATOR in retrograde technique. I accessed the left anterior tibial artery using micropuncture technique under ultrasound guidance, the micropuncture wire passed easily then I place a 5-[place] sheath. The SideArm of the sheath was connected to a combination off nitroglycerin and verapamil and heparin. Subsequently I was able to cross the chronic total occlusion of the left popliteal and left SFA in retrograde technique and the wire was advanced all the way to the left common femoral artery. I was able to snare the wire from above. Subsequently I did intravascular ultrasound and that showed that I was in the submentalalmost all the way. I did angioplasty of the left SFA using chocolate balloon and also balloon angioplasty of the left popliteal using shockwave balloon. After that I deployed 4 stents. I deployed 1 stents in the left popliteal and 3 stents in the left SFA. Final angiogram was performed and showed excellent angiographic results and the procedure was completed was no complication. After that I did exchange my long sheath into short sheath using 035 stiff Glidewire before I did selective right common femoral artery angiogram. The procedure was completed there was no complication Postprocedure management 1. Dual antiplatelet therapy 2. Aggressive cholesterol control 3. Risk factors modification 4. Follow-up with the patient
[2022-11-26 20:50] LABS: Glucose,Whole Blood 176 mg/dL (70-110)
[2022-11-26] MEDS ORDERED: ATORVASTATIN 40 MG TAB PO SCH (21:00)
[2022-11-26] MEDS ORDERED: ALPRAZolam 0.5 MG TAB PO SCH (21:00)
[2022-11-26] MEDS: HYDROmorphone 0.5 MG/0.5 ML SYRINGE IVP PRN (23:58)
[2022-11-27] MEDS: HYDROmorphone 0.5 MG/0.5 ML SYRINGE IVP PRN ×2 (04:15→08:17)
[2022-11-27 05:44] LABS: African American GFR (CKD) >90 (>60 ml/min/1.73 sqM); Non-African American GFR(CKD) 89 (>60 ml/min/1.73 sqM)
--- NOTE | 2022-11-27 07:31 | P.DS ---
Providers Attending physician: Danyel Guerrier Primary care physician: [facility] Course: The patient is a pleasant 73-year-old female patient was underwent yesterday successful NEWSPAPER INSERTER of the left SFA and left popliteal She was seen this morning beach she seems to be asymptomatic and hemodynamic stable. The patient is going to be discharged on dual antiplatelet therapy and statin and I'll follow-up with the patient next week in the office Plan - Discharge Summary Discharge Rx Participant: No New Discharge Prescriptions: Continue Atorvastatin [Lipitor] 40 mg PO HS Calcium Carbonate [Calcium] 600 mg PO DAILY Cholecalciferol (Vitamin D3) [Vitamin D3] 3,000 unit PO DAILY Fenofibrate 160 mg PO DAILY Loratadine 10 mg PO DAILY Montelukast [Singulair] 10 mg PO QAM Vitamin B Complex 1 cap PO DAILY ALPRAZolam [Xanax] 0.5 mg PO HS Ascorbic Acid [Vitamin C] 1,000 mg PO DAILY Losartan Potassium [Cozaar] 100 mg PO QAM Meclizine [Antivert] 25 mg PO DAILY PRN PRN Reason: dizziness Clopidogrel [Plavix] 75 mg PO DAILY tab Aspirin [Adult Low Dose Aspirin EC] 81 mg PO W/LUNCH Discontinued metFORMIN HCL [Glucophage] 1,000 mg PO 1200 Discharge Medication List Atorvastatin [Lipitor] 40 mg PO HS 12/19/16 [History] Calcium Carbonate [Calcium] 600 mg PO DAILY 12/19/16 [History] Cholecalciferol (Vitamin D3) [Vitamin D3] 3,000 unit PO DAILY 12/19/16 [History] Fenofibrate 160 mg PO DAILY 12/19/16 [History] Loratadine 10 mg PO DAILY 12/19/16 [History] Montelukast [Singulair] 10 mg PO QAM 12/19/16 [History] Vitamin B Complex 1 cap PO DAILY 12/19/16 [History] ALPRAZolam [Xanax] 0.5 mg PO HS 11/22/21 [History] Ascorbic Acid [Vitamin C] 1,000 mg PO DAILY 11/22/21 [History] Aspirin [Adult Low Dose Aspirin EC] 81 mg PO W/LUNCH 11/22/21 [History] Losartan Potassium [Cozaar] 100 mg PO QAM 11/22/21 [History] Meclizine [Antivert] 25 mg PO DAILY PRN 11/22/21 [History] Clopidogrel [Plavix] 75 mg PO DAILY tab 12/05/21 [Rx] Follow up Appointment(s)/Referral(s): Danyel Guerrier MD [STAFF PHYSICIAN] - 1 Week
[2022-11-27 08:49] VITALS: BP 114/75; PULSE 80; RESP 18; TEMP 98.4
[2022-11-27] MEDS ORDERED: LORATADINE 10 MG TAB PO SCH (09:00)
[2022-11-27] MEDS ORDERED: MONTELUKAST 10 MG TAB PO SCH (09:00)
[2022-11-27] MEDS ORDERED: CHOLECALCIFEROL 25 MCG (1000 IU) TABLET PO SCH (09:00)
[2022-11-27] MEDS ORDERED: LOSARTAN 50 MG TAB PO SCH (09:00)
[2022-11-27] MEDS ORDERED: FENOFIBRATE 160 MG TAB PO SCH (09:00)
[2022-11-27] MEDS ORDERED: CALCIUM CARBONATE 500 MG CHEWABLE PO SCH (09:00)
[2022-11-27] MEDS ORDERED: ASCORBIC ACID 500 MG TAB PO SCH (09:00)
[2022-11-27] MEDS ORDERED: CLOPIDOGREL 75 MG TAB PO SCH (09:00)
[2022-11-27] MEDS ORDERED: NON FORMULARY DRUG (Vitamin B Complex [Vitamin B Complex] 1 EACH Capsule) PO SCH (09:00)
[2022-11-27] MEDS ORDERED: ASPIRIN 81 MG PO SCH (12:30)
== END 2022-11-27 10:40 | disposition home or self-care (01) ==
LOC: CATHCVL 07:37 → 6NMEDSUR 16:06 → CATHCVL 11-27 10:40
PROVIDERS: ATTEND Internal Medicine Interventional Cardiology
DX: I73.9 Peripheral vascular disease, unspecified (principal); I65.23 Occlusion and stenosis of bilateral carotid arteries; E78.5 Hyperlipidemia, unspecified; I10 Essential (primary) hypertension; Z82.49 Family history of ischemic heart disease and other diseases of the circulatory system; Z79.82 Long term (current) use of aspirin; Z79.899 Other long term (current) drug therapy
CPT/HCPCS: 37226; 37252; 82565; C1769 ×6; C1773; C1894 ×4; C1887; C1725 ×4; C1714; C1753; C1874 ×2; C9764; J2250; J2001; J3010; J1644 ×2; J1170 ×2; Q9966; 92978

== ENCOUNTER → 2022-12-11 | Outpatient (CLI) | payer MEDICARE ==
[~2022-12-11] MED LIST changes: -ALPRAZolam 0.25 MG TAB PO PRN; -ASPIRIN 325 MG TAB PO PRN; +DENOSUMAB 60 MG/ML 1 ML SYRINGE SQ NR; -SODIUM CHLORIDE 0.9% 1,000 ML in EMPTY BAG 1 BAG IV ONE
[2022-12-11 13:09] VITALS: BP 106/69; PULSE 82; RESP 16; TEMP 97.2
== END ==
LOC: PROCWHC3 12:54
PROVIDERS: ATTEND Family Medicine
DX: M81.0 Age-related osteoporosis without current pathological fracture (principal)
CPT/HCPCS: 96372; J0897

== ENCOUNTER 2023-05-11 19:34 | Emergency (ER) | payer MEDICARE ==
--- NOTE | 2023-05-11 20:18 | ED ---
Abdominal Pain HPI - General Source: RN notes reviewed <Susana Darden - Last Filed: 05/11/23 20:18> - General Source: RN notes reviewed, old records reviewed Limitations: no limitations - History of Present Illness MD Complaint: abdominal pain -: week(s) (3) Location: epigastric, suprapubic Radiation: epigastric, suprapubic Migration to: suprapubic Severity scale (1-10): 7 Quality: stabbing, aching, sharp Consistency: constant Improves With: nothing Worsens With: nothing Associated Symptoms: nausea Treatments Prior to Arrival: other (0) <Deion Elliott - Last Filed: 05/18/23 00:26> - General Stated Complaint: abd pain Time Seen by Provider: 05/11/23 20:18 - History of Present Illness Initial Comments: Patient is a 72-year-old female who presents the emergency department for abdominal pain in the left lower abdomen for 3 weeks (Susana Darden) This is a 72-year-old female DF for evaluation of dull pain left lower quadrant abdominal pain persistent here in the ER epigastric abdominal pain suprapubic abdominal pain at times. Patient does have some bruising to her anterior abdomen no current nausea vomiting or fevers. No change in bowel or stools. Patient states symptoms again for 3 weeks but being persisting currently. (Deion Reynoso) - Related Data Home Medications Medication Instructions Recorded Confirmed Atorvastatin [Lipitor] 40 mg PO HS 12/19/16 12/11/22 Calcium Carbonate [Calcium] 600 mg PO DAILY 12/19/16 12/11/22 Cholecalciferol (Vitamin D3) 3,000 unit PO DAILY 12/19/16 12/11/22 [Vitamin D3] Fenofibrate 160 mg PO DAILY 12/19/16 12/11/22 Loratadine 10 mg PO DAILY 12/19/16 12/11/22 Montelukast [Singulair] 10 mg PO QA 12/19/16 12/11/22 Vitamin B Complex 1 cap PO DAILY 12/19/16 12/11/22 ALPRAZolam [Xanax] 0.5 mg PO HS 11/22/21 12/11/22 Ascorbic Acid [Vitamin C] 1,000 mg PO DAILY 11/22/21 12/11/22 Aspirin [Adult Low Dose Aspirin EC] 81 mg PO W/LUNCH 11/22/21 12/11/22 Losartan Potassium [Cozaar] 100 mg PO QAM 11/22/21 12/11/22 Meclizine [Antivert] 25 mg PO DAILY PRN 11/22/21 12/11/22 Previous Rx's Medication Instructions Recorded Clopidogrel [Plavix] 75 mg PO DAILY tab 12/05/21 Allergies Allergy/AdvReac Type Severity Reaction Status Date / Time No Known Allergies Allergy Verified 05/11/23 20:19 Review of Systems ROS Other: All systems not noted in ROS Statement are negative. <Susana Darden - Last Filed: 05/11/23 20:18> ROS Other: All systems not noted in ROS Statement are negative. <Deion Elliott - Last Filed: 05/18/23 00:26> ROS Statement: Those systems with pertinent positive or pertinent negative responses have been documented in the HPI. Past Medical History Past Medical History: Cancer, Diabetes Mellitus, Hyperlipidemia, Hypertension, Vascular Disorder Additional Past Medical History / Comment(s): Hx left breast cancer- tx with CHEMO and RADIATION, vertigo. History of Any Multi-Drug Resistant Organisms: None Reported Past Surgical History: Breast Surgery, Orthopedic Surgery Additional Past Surgical History / Comment(s): Left breast lumpectomy, left ankle ORIF, benign left groin tumor removed, has 1 stent in each leg. Past Anesthesia/Blood Transfusion Reactions: No Reported Reaction Smoking Status: Former smoker - Past Family History Sister(s) Family Medical History: Cancer Brother(s) Family Medical History: Cancer Mother Family Medical History: Cancer, CVA/TIA <Susana Darden - Last Filed: 05/11/23 20:18> General Exam <Susana Darden - Last Filed: 05/11/23 20:18> General appearance: alert, in no apparent distress Head exam: Present: atraumatic, normocephalic, normal inspection Eye exam: Present: normal appearance, PERRL, EOMI. Absent: scleral icterus, conjunctival injection, periorbital swelling ENT exam: Present: normal exam, mucous membranes moist Neck exam: Present: normal inspection. Absent: tenderness, meningismus, lymphadenopathy Respiratory exam: Present: normal lung sounds bilaterally. Absent: respiratory distress, wheezes, rales, rhonchi, stridor Cardiovascular Exam: Present: regular rate, normal rhythm, normal heart sounds. Absent: systolic murmur, diastolic murmur, rubs, gallop, clicks GI/Abdominal exam: Present: soft, normal bowel sounds. Absent: distended, tenderness, guarding, rebound, rigid Extremities exam: Present: normal inspection, full ROM, normal capillary refill. Absent: tenderness, pedal edema, joint swelling, calf tenderness Back exam: Present: normal inspection Neurological exam: Present: alert, oriented X3, CN II-XII intact Psychiatric exam: Present: normal affect, normal mood Skin exam: Present: warm, dry, intact, normal color. Absent: rash <Deion Elliott - Last Filed: 05/18/23 00:26> - General Exam Comments Initial Comments: Visual Physical Exam Vital signs reviewed General: Well-appearing, nontoxic, no acute distress. Head: Normocephalic, atraumatic Eyes: PERRLA, EOMI ENT: Airway patent Chest: Nonlabored breathing Skin: No visual rash, normal skin tone Neuro: Alert and oriented 3 Musculoskeletal: No gross abnormalities (Susana Darden) Course <Deion Elliott - Last Filed: 05/18/23 00:26> Vital Signs 05/11/23 05/11/23 20:16 22:07 Temperature 98.3 F Pulse Rate 88 80 Respiratory 20 18 Rate Blood Pressure 122/78 150/92 O2 Sat by Pulse 95 95 Oximetry - Reevaluation(s) Reevaluation #1: 05/11/23 23:38 Medical record is reviewed (Deion Elliott) Reevaluation #2: 05/11/23 23:38 Patient hasn't improved pain here in the ER (Deion Elliott) Reevaluation #3: 05/11/23 23:38 Patient informed results and questions answered (Deion Elliott) Reevaluation #4: 05/11/23 23:38 Was pt. sent in by a medical professional or institution (, PA, PHYSICAL THERAPY ASST, urgent care, hospital, or fci...) When possible be specific @ -no Did you speak to anyone other than the patient for history (EMS, parent, family, police, friend...)? What history was obtained from this source @ -no Did you review nursing and triage notes (agree or disagree)? Why? @ -agree Are old charts reviewed (outside hosp., previous admission, EMS record, old EKG, old radiological studies, urgent care reports/EKG's, fci records)? Report findings @ -yes Differential Diagnosis (chest pain, altered mental status, abdominal pain women, abdominal pain men, vaginal bleeding, weakness, fever, dyspnea, syncope, headache, dizziness, GI bleed, back pain, seizure, CVA, palpatations, mental health, musculoskeletal)? @ -prior EKG interpreted by me (3pts min.). @ -no X-rays interpreted by me (1pt min.). @ -no CT interpreted by me (1pt min.). @ -yes U/S interpreted by me (1pt. min.). @ -no What testing was considered but not performed or refused? (CT, X-rays, U/S, labs)? Why? @ -none What meds were considered but not given or refused? Why? @ -none Did you discuss the management of the patient with other professionals (professionals i.e. DrBonny, PA, PHYSICAL THERAPY ASST, lab, RT, psych nurse, social scientist, call or contact centre team leader, teacher, fire information officer, dependency case manager)? Give summary @ -no Was smoking cessation discussed for >3mins.? @ -no Was critical care preformed (if so, how long)? @ -no Were there social determinants of health that impacted care today? How? (Homelessness, low income, unemployed, alcoholism, drug addiction, transportation, low edu. Level, literacy, decrease access to med. care, prison, rehab)? @ -none Was there de-escalation of care discussed even if they declined (Discuss DNR or withdrawal of care, Hospice)? DNR status @ -no What co-morbidities impacted this encounter? (DM, HTN, Smoking, COPD, CAD, Cancer, CVA, ARF, Chemo, Hep., AIDS, mental health diagnosis, sleep apnea, morbid obesity)? @ -none Was patient admitted / discharged? Hospital course, mention meds given and route, prescriptions, significant lab abnormalities, going to OR and other pertinent info. @ - 72 female to the emergency department today for evaluation of abdominal pain nonspecific abdominal pain here in the ER no significant abdominal tenderness normal lab tests normal computed tomography scan patient can be discharged home Discharge Undiagnosed new problem with uncertain prognosis? @ -no Drug Therapy requiring intensive monitoring for toxicity (Heparin, Nitro, Insulin, Cardizem)? @ -no Were any procedures done? @ -no Diagnosis/symptom? @ -Abdominal pain Acute, or Chronic, or Acute on Chronic? @ -Acute Uncomplicated (without systemic symptoms) or Complicated (systemic symptoms)? @ -Complicated Side effects of treatment? @ -no Exacerbation, Progression, or Severe Exacerbation? @ -exacerbation Poses a threat to life or bodily function? How? (Chest pain, USA, MS, pneumonia, PE, COPD, DKA, ARF, appy, cholecystitis, CVA, Diverticulitis, Homicidal, Suicidal, threat to staff... and all critical care pts) @ -no (Deion Elliott) Reevaluation #5: 05/11/23 23:39 Differential Abdominal Pain Women: Appendicitis, Cholecystitis, diverticulosis, ischemic bowel, pancreatitis, hepatitis, UTI, gastroenteritis, AAA, incarcerated hernia, bowel obstruction, constipation, inflammatory bowel, hepatitis, peptic ulcer disease, splenic i nfarction, perforated viscus, vulvitis, ovarian torsion, PID, kidney stone, placenta abruption, this is not meant to be an all-inclusive list (Deion Elliott) Medical Decision Making <Susana Darden - Last Filed: 05/11/23 20:18> - Lab Data Result diagrams: 05/11/23 20:48 05/11/23 20:48 - Radiology Data Radiology results: report reviewed (CT head and pelvis is negative for acute disease), image reviewed <Deion Elliott - Last Filed: 05/18/23 00:26> - Medical Decision Making I performed the QuickNote portion of this chart - Susana Darden PA-C (Susana Darden) 72 female to the emergency department today for evaluation of abdominal pain nonspecific abdominal pain here in the ER no significant abdominal tenderness normal lab tests normal computed tomography scan patient can be discharged home (Deion Elliott) - Lab Data Lab Results 05/11/23 05/11/23 05/11/23 Range/Units 20:48 20:48 20:48 WBC 8.3 (3.8-10.6) k/uL RBC 4.34 (3.80-5.40) m/uL Hgb 12.7 (11.4-16.0) gm/dL Hct 38.5 (34.0-46.0) % MCV 88.6 (80.0-100.0) fL MCH 29.2 (25.0-35.0) pg MCHC 33.0 (31.0-37.0) g/dL RDW 13.2 (11.5-15.5) % Plt Count 322 (150-450) k/uL MPV 8.0 Neutrophils % 64 % Lymphocytes % 24 % Monocytes % 6 % Eosinophils % 3 % Basophils % 1 % Neutrophils # 5.3 (1.3-7.7) k/uL Lymphocytes # 2.0 (1.0-4.8) k/uL Monocytes # 0.5 (0-1.0) k/uL Eosinophils # 0.3 (0-0.7) k/uL Basophils # 0.1 (0-0.2) k/uL Sodium 143 (137-145) mmol/L Potassium 4.1 (3.5-5.1) mmol/L Chloride 104 (98-107) mmol/L Carbon Dioxide 29 (22-30) mmol/L Anion Gap 10 mmol/L BUN 36 H (7-17) mg/dL Creatinine 0.88 (0.52-1.04) mg/dL Est GFR (CKD-EPI)AfAm 76 (>60 ml/min/1.73 sqM) Est GFR (CKD-EPI)NonAf 66 (>60 ml/min/1.73 sqM) Glucose 135 H (74-99) mg/dL Plasma Lactic Acid Jono (0.7-2.0) mmol/L Calcium 10.4 H (8.4-10.2) mg/dL Total Bilirubin 0.4 (0.2-1.3) mg/dL AST 30 (14-36) U/L ALT 38 H (4-34) U/L Alkaline Phosphatase 42 (38-126) U/L Total Protein 7.7 (6.3-8.2) g/dL Albumin 4.6 (3.5-5.0) g/dL Lipase 107 (23-300) U/L Urine Color Yellow Urine Appearance Clear (Clear) Urine pH 5.0 (5.0-8.0) Ur Specific [place] 1.025 (1.001-1.035) Urine Protein Negative (Negative) Urine Glucose (UA) Negative (Negative) Urine Ketones Negative (Negative) Urine Blood Negative (Negative) Urine Nitrite Negative (Negative) Urine Bilirubin Negative (Negative) Urine Urobilinogen <2.0 (<2.0) mg/dL Ur Leukocyte Esterase Moderate (Negative) Urine RBC 6 H (0-5) /hpf Urine WBC 6 H (0-5) /hpf Ur Squamous Epith Cells 1 (0-4) /hpf Urine Bacteria Rare H (None) /hpf Hyaline Casts 3 H (0-2) /lpf Urine Mucus Rare H (None) /hpf 05/11/23 Range/Units 20:48 WBC (3.8-10.6) k/uL RBC (3.80-5.40) m/uL Hgb (11.4-16.0) gm/dL Hct (34.0-46.0) % MCV (80.0-100.0) fL MCH (25.0-35.0) pg MCHC (31.0-37.0) g/dL RDW (11.5-15.5) % Plt Count (150-450) k/uL MPV Neutrophils % % Lymphocytes % % Monocytes % % Eosinophils % % Basophils % % Neutrophils # (1.3-7.7) k/uL Lymphocytes # (1.0-4.8) k/uL Monocytes # (0-1.0) k/uL Eosinophils # (0-0.7) k/uL Basophils # (0-0.2) k/uL Sodium (137-145) mmol/L Potassium (3.5-5.1) mmol/L Chloride (98-107) mmol/L Carbon Dioxide (22-30) mmol/L Anion Gap mmol/L BUN (7-17) mg/dL Creatinine (0.52-1.04) mg/dL Est GFR (CKD-EPI)AfAm (>60 ml/min/1.73 sqM) Est GFR (CKD-EPI)NonAf (>60 ml/min/1.73 sqM) Glucose (74-99) mg/dL Plasma Lactic Acid Jono 1.0 (0.7-2.0) mmol/L Calcium (8.4-10.2) mg/dL Total Bilirubin (0.2-1.3) mg/dL AST (14-36) U/L ALT (4-34) U/L Alkaline Phosphatase (38-126) U/L Total Protein (6.3-8.2) g/dL Albumin (3.5-5.0) g/dL Lipase (23-300) U/L Urine Color Urine Appearance (Clear) Urine pH (5.0-8.0) Ur Specific [place] (1.001-1.035) Urine Protein (Negative) Urine Glucose (UA) (Negative) Urine Ketones (Negative) Urine Blood (Negative) Urine Nitrite (Negative) Urine Bilirubin (Negative) Urine Urobilinogen (<2.0) mg/dL Ur Leukocyte Esterase (Negative) Urine RBC (0-5) /hpf Urine WBC (0-5) /hpf Ur Squamous Epith Cells (0-4) /hpf Urine Bacteria (None) /hpf Hyaline Casts (0-2) /lpf Urine Mucus (None) /hpf Disposition <Susana Darden - Last Filed: 05/11/23 20:18> Is patient prescribed a controlled substance at d/c from ED?: No Time of Disposition: 22:55 <Deion Elliott - Last Filed: 05/18/23 00:26> Clinical Impression: Abdominal pain Disposition: HOME SELF-CARE Condition: Good Instructions (If sedation given, give patient instructions): Abdominal Pain (ED) Referrals: Heriberto Walls DO [Primary Care Provider] - 1-2 days Essie Rodriguez MD [STAFF PHYSICIAN] - 1-2 days
[2023-05-11 20:27] VITALS: TEMP 98.3
[2023-05-11 21:03] LABS: Basophils # (A) 0.1 k/uL (0-0.2); Basophils % (A) 1 %; Eosinophils # (A) 0.3 k/uL (0-0.7); Eosinophils % (A) 3 %; HCT 38.5 % (34.0-46.0); HGB 12.7 gm/dL (11.4-16.0); Lymphocytes % (A) 24 %; MCH 29.2 pg (25.0-35.0); MCV 88.6 fL (80.0-100.0); Monocytes # (A) 0.5 k/uL (0-1.0); Monocytes % (A) 6 %; Neutrophils # (A) 5.3 k/uL (1.3-7.7); Neutrophils % (A) 64 %; Platelet Count 322 k/uL (150-450); RBC 4.34 m/uL (3.80-5.40); RDW 13.2 % (11.5-15.5); WBC 8.3 k/uL (3.8-10.6)
[2023-05-11 21:31] LABS: ALT 38 U/L (4-34); AST 30 U/L (14-36); African American GFR (CKD) 76 (>60 ml/min/1.73 sqM); Albumin 4.6 g/dL (3.5-5.0); Alkaline Phosphatase 42 U/L (38-126); Anion Gap 10 mmol/L; Blood Urea Nitrogen 36 mg/dL (7-17); Calcium 10.4 mg/dL (8.4-10.2); Carbon Dioxide 29 mmol/L (22-30); Chloride 104 mmol/L (98-107); Glucose 135 mg/dL (74-99); Lipase 107 U/L (23-300); Non-African American GFR(CKD) 66 (>60 ml/min/1.73 sqM); Potassium 4.1 mmol/L (3.5-5.1); Sodium 143 mmol/L (137-145); Total Bilirubin 0.4 mg/dL (0.2-1.3); Total Protein 7.7 g/dL (6.3-8.2)
[2023-05-11 21:42] LABS: Bacteria,Urine Rare /hpf; Hyaline Casts,Urine 3 /lpf (0-2); Mucus,Urine Rare /hpf; RBC,Urine 6 /hpf (0-5); Squamous Epithelial Cell,Urine 1 /hpf (0-4); WBC,Urine 6 /hpf (0-5)
[2023-05-11 21:44] LABS: Appearance,Urine Clear (Clear); Color,Urine Yellow; Glucose,Urine (UA) Negative (Negative); Protein,Urine Negative (Negative); Specific Gravity,Urine 1.025 (1.001-1.035)
[2023-05-11 21:45] LABS: Bilirubin,Urine Negative (Negative); Blood,Urine Negative (Negative); Ketones,Urine Negative (Negative); Leukocyte Esterase,Urine Moderate (Negative); Nitrite,Urine Negative (Negative); Urobilinogen,Urine <2.0 mg/dL (<2.0)
[2023-05-11 22:10] VITALS: BP 150/92; PULSE 80; RESP 18
[2023-05-11] MEDS ORDERED: SODIUM CHLORIDE 0.9% 1,000 ML IV STA (22:11)
--- NOTE | 2023-05-11 22:33 | CT ---
EXAM: CT Abdomen and Pelvis With Intravenous Contrast CLINICAL HISTORY: ITS.REASON CT Reason: pain TECHNIQUE: Axial computed tomography images of the abdomen and pelvis with intravenous contrast. CTDI is 18.9 mGy and DLP is 897.7 mGy-cm. This CT exam was performed using one or more of the following dose reduction techniques: automated exposure control, adjustment of the mA and/or kV according to patient size, and/or use of iterative reconstruction technique. COMPARISON: No relevant prior studies available. FINDINGS: Lung bases: Unremarkable. No mass. No consolidation. ABDOMEN: Liver: Hepatic steatosis. Gallbladder and bile ducts: Contracted gallbladder. No calcified stones. No ductal dilation. Pancreas: Unremarkable. No mass. No ductal dilation. Spleen: Unremarkable. No splenomegaly. Adrenals: Unremarkable. No mass. Kidneys and ureters: Unremarkable. No hydronephrosis or delayed nephrogram. Stomach and bowel: Diverticulosis, without acute diverticulitis. No small bowel obstruction. No free intraperitoneal air. PELVIS: Appendix: Normal appendix. Bladder: Decompressed urinary bladder. Reproductive: Atrophied uterus. ABDOMEN and PELVIS: Intraperitoneal space: Unremarkable. No free air. No significant fluid collection. Bones/joints: Degenerative changes of the spine. No acute fracture. No dislocation. Soft tissues: Unremarkable. Vasculature: Atherosclerotic changes of the aorta. No abdominal aortic aneurysm. Lymph nodes: Unremarkable. No enlarged lymph nodes. IMPRESSION: 1. No hydronephrosis or delayed nephrogram. 2. Normal appendix. 3. Hepatic steatosis. 4. Diverticulosis, without acute diverticulitis. No small bowel obstruction. No free intraperitoneal air.
== END 2023-05-11 23:23 | disposition home or self-care (01) ==
LOC: EC 19:34
DX: R10.13 Epigastric pain (principal); R10.32 Left lower quadrant pain; E11.9 Type 2 diabetes mellitus without complications; I10 Essential (primary) hypertension; E78.5 Hyperlipidemia, unspecified; Z87.891 Personal history of nicotine dependence; Z79.82 Long term (current) use of aspirin; Z79.899 Other long term (current) drug therapy
CPT/HCPCS: 36415; 80053; 83605; 83690; 85025; 81001; 74177; 99284; 96360; Q9967

== ENCOUNTER → 2023-05-28 | Outpatient (CLI) | payer MEDICARE ==
[2023-05-28 14:36] VITALS: BP 105/72; PULSE 80; RESP 16; TEMP 98.1
== END ==
LOC: PROCWHC3 13:39
PROVIDERS: ATTEND Family Medicine
DX: M81.0 Age-related osteoporosis without current pathological fracture (principal)
CPT/HCPCS: 96372; J0897

== ENCOUNTER → 2023-07-15 | Outpatient (CLI) | payer MEDICARE ==
--- NOTE | 2023-07-15 15:43 | XR ---
EXAMINATION TYPE: XR chest 2V DATE OF EXAM: 07/15/2023 COMPARISON: None INDICATION: Physical TECHNIQUE: Frontal and lateral views of the chest are obtained. FINDINGS: The heart size is normal. The pulmonary vasculature is normal. There is some opacification and silhouetting of the left heart border. Some atelectasis may be presen t within the lingula. On more chronic changes could be considered. Surgical clips are within the left breast and axillary region. Scoliosis is within the thoracic spine. IMPRESSION: 1. Silhouetting the left heart border. Correlate for atelectasis. Follow-up chest x-ray can be perfor med.
== END | disposition home or self-care (01) ==
LOC: RADXRMAIN 15:21
PROVIDERS: ATTEND Family Medicine
DX: R09.89 Other specified symptoms and signs involving the circulatory and respiratory systems (principal)
CPT/HCPCS: 71046

== ENCOUNTER → 2023-09-23 | Outpatient (CLI) | payer MEDICARE ==
--- NOTE | 2023-09-27 17:57 | MM ---
Reason for Exam: Screening (asymptomatic). Last screening mammogram was performed 12 month(s) ago. Patient History: Menarche at age 12. First Full-Term at age 19. Postmenopausal. Breast cancer, left, age 50. Previous chest radiation therapy at age 50. Previous chemotherapy at age 50. 10/07/2000, Malignant Excisional Biopsy on the left side. 04/11/1999, Benign Stereotactic Core Biopsy on the left side. Radiation Therapy, left. Chemotherapy. Sister had breast cancer, age 49. Prior Study Comparison: 06/08/2020 Bilateral Diagnostic Mammogram, [facility]. 06/10/2021 Bilateral Diagnostic Mammogram, [facility]. 09/16/2022 Bilateral MG 3D screening mammo w/cad, [facility]. Tissue Density: There are scattered areas of fibroglandular density. Findings: Analyzed By CAD. Postsurgical and posttreatment changes redemonstrated on the left. There is no suspicious group of microcalcifications or new suspicious mass in either breast. Overall Assessment: Benign, BI-RAD 2 Management: Screening Mammogram of both breasts in 1 year. . Patient should continue monthly self-breast exams. A clinical breast exam by your physician is recommended on an annual basis. This exam should not preclude additional follow-up of suspicious palpable abnormalities. Electronically signed and approved by: Wolf Crowe M.D. Radiologist
== END | disposition home or self-care (01) ==
LOC: RADMAMWWP 15:04
PROVIDERS: ATTEND Family Medicine
DX: Z12.31 Encounter for screening mammogram for malignant neoplasm of breast (principal); Z85.3 Personal history of malignant neoplasm of breast; Z80.3 Family history of malignant neoplasm of breast; Z78.0 Asymptomatic menopausal state
CPT/HCPCS: 77063; 77067

== ENCOUNTER → 2023-09-23 | Outpatient (CLI) | payer MEDICARE ==
--- NOTE | 2023-09-23 15:50 | XR ---
EXAMINATION TYPE: XR chest 2V DATE OF EXAM: 09/23/2023 COMPARISON: 07/15/2023. HISTORY: Pain. TECHNIQUE: Frontal and lateral views of the chest are obtained. FINDINGS: There is no focal consolidative change. The cardiac silhouette is mildly enlarged and the pulmonary vessels are within normal limits. Surgical clips are seen within the left axilla. IMPRESSION: No acute cardiopulmonary process.
== END | disposition home or self-care (01) ==
LOC: RADXRMAIN 15:30
PROVIDERS: ATTEND Family Medicine
DX: R09.89 Other specified symptoms and signs involving the circulatory and respiratory systems (principal); R07.9 Chest pain, unspecified
CPT/HCPCS: 71046

== ENCOUNTER → 2024-04-21 | Outpatient (CLI) | payer MEDICARE ==
--- NOTE | 2024-04-21 13:29 | MM ---
Reason for Exam: Follow-up at short interval from prior study. Last screening mammogram was performed 7 month(s) ago. Patient History: Menarche at age 12. First Full-Term at age 19. Postmenopausal. Breast cancer, left, age 50. Previous chest radiation therapy at age 50. Previous chemotherapy at age 50. 10/07/2000, Malignant Excisional Biopsy on the left side. 04/11/1999, Benign Stereotactic Core Biopsy on the left side. Radiation Therapy, left. Chemotherapy. Sister had breast cancer, age 49. Prior Study Comparison: 06/10/2021 Bilateral Diagnostic Mammogram, [facility]. 09/16/2022 Bilateral MG 3D screening mammo w/cad, [facility]. 09/23/2023 Bilateral MG 3D screening mammo w/cad, [facility]. Tissue Density: Left: The breasts are almost entirely fatty. Findings: Analyzed By CAD. Postoperative distortion from prior lumpectomy. No evidence for recurrent or residual mass. No mass at the site of clinical concern however ultrasound is advised. Benign dystrophic calcifications identified. Overall Assessment: Incomplete: need additional imaging evaluation, BI-RAD 0 Management: Diagnostic Breast Ultrasound of the left breast. . Results were given to the patient verbally at the time of exam. Patient should continue monthly self-breast exams. A clinical breast exam by your physician is recommended on an annual basis. This exam should not preclude additional follow-up of suspicious palpable abnormalities. Note on Haley scores and lifetime risk: 1. A Haley score greater than 3% is considered moderate risk. If this is the case, consider specialist referral to assess eligibility for a risk reducing agent. 2. If overall lifetime risk for the development of breast cancer is 20% or higher, the patient may qualify for future screening with alternating mammogram and breast MRI. [facility], , 04/21/2024 1:26 PM. Electronically signed and approved by: Howard Montana M.D. Radiologis
--- NOTE | 2024-04-21 13:45 | USB ---
Reason for Exam: Clinical finding. Patient History: Menarche at age 12. First Full-Term at age 19. Postmenopausal. Breast cancer, left, age 50. Previous chest radiation therapy at age 50. Previous chemotherapy at age 50. 10/07/2000, Malignant Excisional Biopsy on the left side. 04/11/1999, Benign Stereotactic Core Biopsy on the left side. Radiation Therapy, left. Chemotherapy. Sister had breast cancer, age 49. Technique: Method: Targeted. Prior Study Comparison: 06/10/2021 Bilateral Diagnostic Mammogram, [facility]. 09/16/2022 Bilateral MG 3D screening mammo w/cad, [facility]. 09/23/2023 Bilateral MG 3D screening mammo w/cad, [facility]. Findings: The area of palpable concern of the left breast, the lower inner quadrant of the left breast, the axilla of the left breast and the retroareolar of the left breast were scanned. No solid or cystic masses are identified.. Overall Assessment: Negative, BI-RAD 1 Management: Screening Mammogram of both breasts in 6 months. A clinical breast exam by your physician is recommended on an annual basis and results should be correlated with mammographic findings. This exam should not preclude additional follow-up of suspicious palpable abnormalities. Results were given to the patient verbally at the time of exam. [facility], , 04/21/2024 1:42 PM. Electronically signed and approved by: Howard Montana M.D. Radiologis
== END | disposition home or self-care (01) ==
LOC: RADMAMWWP 13:03
PROVIDERS: ATTEND Family Medicine
CPT/HCPCS: 77061; 77065

== ENCOUNTER 2024-08-03 11:42 | Day surgery (SDC) | payer MEDICARE ==
[~2024-08-03 11:42] MED LIST changes: +ALPRAZolam 0.25 MG TAB PO PRN; -DENOSUMAB 60 MG/ML 1 ML SYRINGE SQ NR
[2024-08-03 13:59] LABS: Glucose,Whole Blood 101 mg/dL (70-110)
[2024-08-03 14:07] LABS: Basophils # (A) 0.1 k/uL (0-0.2); Basophils % (A) 1 %; Eosinophils # (A) 0.2 k/uL (0-0.7); Eosinophils % (A) 2 %; HCT 39.5 % (34.0-46.0); Lymphocytes # (A) 1.9 k/uL (1.0-4.8); Lymphocytes % (A) 18 %; MCH 28.7 pg (25.0-35.0); MCHC 32.8 g/dL (31.0-37.0); MCV 87.5 fL (80.0-100.0); Mean Platelet Volume 7.4; Monocytes # (A) 0.5 k/uL (0-1.0); Monocytes % (A) 5 %; Neutrophils # (A) 7.6 k/uL (1.3-7.7); Neutrophils % (A) 73 %; Platelet Count 286 k/uL (150-450); RBC 4.51 m/uL (3.80-5.40); RDW 12.9 % (11.5-15.5); WBC 10.5 k/uL (3.8-10.6)
[2024-08-03] MEDS: IV FLUID CONTINUATION 1,000 ML IV ONE (14:09)
[2024-08-03 14:22] LABS: African American GFR (CKD) >90 (>60 ml/min/1.73 sqM); Anion Gap 8 mmol/L; Blood Urea Nitrogen 17 mg/dL (7-17); Calcium 9.4 mg/dL (8.4-10.2); Carbon Dioxide 32 mmol/L (22-30); Chloride 100 mmol/L (98-107); Glucose 113 mg/dL (74-99); Non-African American GFR(CKD) 85 (>60 ml/min/1.73 sqM); Potassium 4.3 mmol/L (3.5-5.1); Sodium 140 mmol/L (137-145)
[2024-08-03] MEDS: HEPARIN SODIUM,PORCINE 10,000 UNIT in SODIUM CHLORIDE 0.9% 1,000 ML IRRIGATION ONE (15:00)
[2024-08-03] MEDS: MIDAZOLAM 2 MG/2 ML VIAL IVP ONE (15:16)
[2024-08-03] MEDS: fentaNYL (PF) 50 MCG/ML 2 ML AMP IVP ONE (15:52)
[2024-08-03] MEDS: niCARdipine Syringe (1,000 mcg/10 mL) INTRAARTER ONE (15:56)
[2024-08-03] MEDS: CLOPIDOGREL 75 MG TAB PO ONE (16:04)
[2024-08-03] MEDS ORDERED: MECLIZINE 25 MG TAB PO PRN (16:10)
[2024-08-03] MEDS: IOPAMIDOL-250 100ML BTL INTRAARTER ONE (16:12)
[2024-08-03] MEDS ORDERED: NALOXONE 0.4 MG/ML 1 ML VIAL IVP PRN (16:12)
--- NOTE | 2024-08-03 18:21 | IR ---
EXAMINATION TYPE: IR angio abdominal w runoff DATE OF EXAM: 08/03/2024 CLINICAL HISTORY: Left leg pain. TECHNIQUE: Fluoroscopy. COMPARISON: None. FINDINGS: Fluoroscopic guidance was provided during abdominal angiogram with lower extremity runoff procedure performed by Dr. Guerrier. A total of 10.3 minutes of fluoroscopic time was utilized during th e procedure and 238 spot images was acquired. Please refer to procedure note for further details. TOTAL DAP = 6.88 Gy x cm2. IMPRESSION: As Above. [facility], , 08/03/2024 6:19 PM
--- NOTE | 2024-08-03 19:05 | P.PCN ---
Date of Procedure: 08/03/24 Operative Findings: An aortogram with runoff and percutaneous peripheral arterial intervention Performing physician Danyel Guerrier M.D. Procedure performed 1. An aortogram with runoff 2. Successful balloon angioplasty of the left SFA and left popliteal using 5 mm drug-coated balloon with an excellent angiographic result 3. Adjunctive use of IVUS 4. Ultrasound-guided access of the right common femoral artery Indication Symptomatic 73-year-old female patient who underwent an arterial duplex study an d that showed occluded bilateral SFA Approach Right common femoral artery Complications None Level of sedation Moderate with a sedation time of 55 minutes Procedure description Attending informed consent the patient was brought to the cardiac Manager Massage Department. The right common femoral artery was cannulated using micropuncture technique under ultrasound guidance a micropuncture wire passed easily then I placed a 5 Greenlandic 11 cm sheath at the right common femoral artery with after that I did an abdominal aortogram and bilateral lower extremities runoff using a power injection using digital subtraction. After that I decided to intervene on the left SFA and right popliteal. At that point anticoagulation was initiated using heparin with continuous ACT monitoring. Subsequently I did exchanged my 11 cm sheath into a 6 Greenlandic 55 cm sheath using 035 stiff Glidewire and subsequently I went up and over from the right to the left using a rim catheter. After that I was able to cross the MERCHANDISE EXECUTION LEADER of the left SFA using a 018 wire. I did do IVUS which revealed diameter around 5 mm with not very calcified vessels. I did balloon angioplasty initially using 5 mm Carol balloon and subsequently 5 mm drug-coated balloon was final angiogram showing excellent angiographic results and the procedure was completed with no complication Peripheral arterial angiogram The aorta appears to have mild disease only Common iliac arteries appear to be stented and the stent are patent External iliac arteries appear to have mild disease only Common femoral arteries appear to be patent bilaterally Profunda appeared to be patent bilaterally The SFA are occluded bilaterally and on the left is in-stent occlusion Popliteals are occluded bilaterally The arteries below the knee were not well-visualized Conclusion Patent bilateral iliac stents Occluded bilateral SFA with in-stent occlusion on the left side. I did perform successful HAND ROLLER ENGRAVER of the left SFA Postprocedure management 1. Dual antiplatelet therapy 2. Aggressive cholesterol control 3. Risk factors modification 4. HAND ROLLER ENGRAVER of the right SFA
[2024-08-03] MEDS: EMPTY BAG 1 BAG with SODIUM CHLORIDE 0.9% 1,000 ML IV SCH (19:28)
[2024-08-03] MEDS: RIVAROXABAN 2.5 MG TABLET PO SCH (21:20)
[2024-08-03] MEDS: ATORVASTATIN 40 MG TAB PO SCH (21:20)
[2024-08-04 04:45] VITALS: RESP 14
[2024-08-04] MEDS: PANTOPRAZOLE 40 MG TABLET PO SCH (06:27)
--- NOTE | 2024-08-04 08:19 | P.DS ---
Providers Attending physician: Danyel Guerrier Primary care physician: Heriberto Lds Hospital Course: The patient is a 73-year-old female patient who underwent yesterday successful angioplasty of the left SFA and left popliteal She was seen and evaluated this morning which she is asymptomatic and hemodynamically stable in the right groin is soft and nontender with no bruises The patient is going to be discharged on dual antiplatelet therapy. She is on fenofibrate. She has history of statin intolerance Plan - Discharge Summary Discharge Rx Participant: Yes New Discharge Prescriptions: Continue Atorvastatin [Lipitor] 40 mg PO HS Calcium Carbonate [Calcium] 600 mg PO DAILY Cholecalciferol (Vitamin D3) [Vitamin D3] 3,000 unit PO DAILY Fenofibrate 160 mg PO DAILY Montelukast [Singulair] 10 mg PO QAM Vitamin B Complex 1 cap PO DAILY Ascorbic Acid [Vitamin C] 1,000 mg PO DAILY Losartan Potassium [Cozaar] 100 mg PO QAM Meclizine [Antivert] 25 mg PO DAILY PRN PRN Reason: dizziness Clopidogrel [Plavix] 75 mg PO DAILY tab Aspirin [Adult Low Dose Aspirin EC] 81 mg PO W/LUNCH Pantoprazole Sodium 40 mg PO QAM Oxybutynin Chloride [oxyBUTYnin chloride ER] 10 mg PO QAM Rivaroxaban [Xarelto] 2.5 mg PO BID Multivitamins, Thera [Multivitamin (formulary)] 1 tab PO DAILY Discontinued metFORMIN HCL ER [Glucophage XR] 1,000 mg PO 1200 Discharge Medication List Atorvastatin [Lipitor] 40 mg PO HS 12/19/16 [History] Calcium Carbonate [Calcium] 600 mg PO DAILY 12/19/16 [History] Cholecalciferol (Vitamin D3) [Vitamin D3] 3,000 unit PO DAILY 12/19/16 [History] Fenofibrate 160 mg PO DAILY 12/19/16 [History] Montelukast [Singulair] 10 mg PO QAM 12/19/16 [History] Vitamin B Complex 1 cap PO DAILY 12/19/16 [History] Ascorbic Acid [Vitamin C] 1,000 mg PO DAILY 11/22/21 [History] Aspirin [Adult Low Dose Aspirin EC] 81 mg PO W/LUNCH 11/22/21 [History] Losartan Potassium [Cozaar] 100 mg PO QAM 11/22/21 [History] Meclizine [Antivert] 25 mg PO DAILY PRN 11/22/21 [History] Clopidogrel [Plavix] 75 mg PO DAILY tab 12/05/21 [Rx] Oxybutynin Chloride [oxyBUTYnin chloride ER] 10 mg PO QAM 07/26/24 [History] Pantoprazole Sodium 40 mg PO QAM 07/26/24 [History] Rivaroxaban [Xarelto] 2.5 mg PO BID 07/26/24 [History] Multivitamins, Thera [Multivitamin (formulary)] 1 tab PO DAILY 08/02/24 [History] Follow up Appointment(s)/Referral(s): Danyel Guerrier MD [STAFF PHYSICIAN] - 08/11/24 2:45 pm (FOLLOW UP APPOINTMENT MADE. ) Activity/Diet/Wound Care/Special Instructions: NO METFORMIN FOR 48 HOURS
[2024-08-04] MEDS: ASCORBIC ACID 500 MG TAB PO SCH (08:48)
[2024-08-04] MEDS: MONTELUKAST 10 MG TAB PO SCH (08:48)
[2024-08-04] MEDS: CLOPIDOGREL 75 MG TAB PO SCH (08:48)
[2024-08-04] MEDS: CALCIUM CARBONATE 500 MG CHEWABLE PO SCH (08:48)
[2024-08-04] MEDS: LOSARTAN 50 MG TAB PO SCH (08:48)
[2024-08-04] MEDS: FENOFIBRATE 160 MG TAB PO SCH (08:48)
[2024-08-04] MEDS: CHOLECALCIFEROL 25 MCG (1000 IU) TABLET PO SCH (08:48)
[2024-08-04] MEDS: MULTIVITAMINS, THERA 1 EACH TAB PO SCH (08:48)
[2024-08-04] MEDS: OXYBUTYNIN 10 MG TAB.ER.24 PO SCH (08:49)
[2024-08-04] MEDS ORDERED: NON FORMULARY DRUG (Vitamin B Complex [Vitamin B Complex] 1 EACH Capsule) PO SCH (09:00)
[2024-08-04 09:46] VITALS: BP 132/70; PULSE 74; TEMP 98.1
[2024-08-04] MEDS ORDERED: ASPIRIN 81 MG PO SCH (12:30)
== END 2024-08-04 10:05 | disposition home or self-care (01) ==
LOC: CATHCVL 11:42 → 3SCARD 16:16 → CATHCVL 08-04 10:05
PROVIDERS: ATTEND Internal Medicine Interventional Cardiology
DX: I65.23 Occlusion and stenosis of bilateral carotid arteries (principal); I73.9 Peripheral vascular disease, unspecified; I10 Essential (primary) hypertension; E78.5 Hyperlipidemia, unspecified; E11.8 Type 2 diabetes mellitus with unspecified complications; Z82.49 Family history of ischemic heart disease and other diseases of the circulatory system; Z79.02 Long term (current) use of antithrombotics/antiplatelets; Z79.82 Long term (current) use of aspirin; Z79.84 Long term (current) use of oral hypoglycemic drugs; Z79.899 Other long term (current) drug therapy
CPT/HCPCS: 37224; 75625; 75716; 37252; 80048; 85025; 37221; C1894 ×3; C1769 ×3; C1753; C2623 ×2; C1725; J2250; J1644 ×2; J3010; Q9966

== ENCOUNTER 2024-10-12 08:13 | Day surgery (SDC) | payer MEDICARE ==
[2024-10-04 11:42] VITALS: BMI 27.8
[~2024-10-12 08:13] MED LIST changes: -ALPRAZolam 0.25 MG TAB PO PRN; +ALPRAZolam 0.5 MG TAB PO PRN; +ZOLPIDEM 5 MG TAB PO PRN
[2024-10-12] MEDS: CLOPIDOGREL 75 MG TAB PO STA (08:39)
[2024-10-12] MEDS: EMPTY BAG 1 BAG with SODIUM CHLORIDE 0.9% 1,000 ML IV SCH (08:40)
[2024-10-12] MEDS: IV FLUID CONTINUATION 1,000 ML IV ONE (08:47)
[2024-10-12 09:07] LABS: Glucose,Whole Blood 141 mg/dL (70-110)
[2024-10-12 09:22] LABS: Basophils # (A) 0.1 k/uL (0-0.2); Basophils % (A) 1 %; Eosinophils # (A) 0.3 k/uL (0-0.7); Eosinophils % (A) 3 %; HCT 41.5 % (34.0-46.0); HGB 12.9 gm/dL (11.4-16.0); Lymphocytes # (A) 1.7 k/uL (1.0-4.8); Lymphocytes % (A) 19 %; MCH 27.7 pg (25.0-35.0); MCHC 31.2 g/dL (31.0-37.0); MCV 88.9 fL (80.0-100.0); Mean Platelet Volume 7.3; Monocytes # (A) 0.5 k/uL (0-1.0); Monocytes % (A) 6 %; Neutrophils # (A) 6.1 k/uL (1.3-7.7); Neutrophils % (A) 69 %; Platelet Count 283 k/uL (150-450); RBC 4.67 m/uL (3.80-5.40); RDW 13.2 % (11.5-15.5); WBC 8.8 k/uL (3.8-10.6)
[2024-10-12 09:34] LABS: African American GFR (CKD) >90 (>60 ml/min/1.73 sqM); Anion Gap 8 mmol/L; Blood Urea Nitrogen 24 mg/dL (7-17); Calcium 9.3 mg/dL (8.4-10.2); Carbon Dioxide 28 mmol/L (22-30); Chloride 102 mmol/L (98-107); Glucose 145 mg/dL (74-99); Non-African American GFR(CKD) >90 (>60 ml/min/1.73 sqM); Sodium 138 mmol/L (137-145)
[2024-10-12 09:35] LABS: Potassium 5.2 mmol/L (3.5-5.1)
[2024-10-12] MEDS: MIDAZOLAM 2 MG/2 ML VIAL IVP ONE ×2 (13:12→13:28)
[2024-10-12] MEDS: LIDOCAINE 1% INJ 10MG/ML (20 ML MDV) SQ ONE (13:13)
[2024-10-12] MEDS: HEPARIN SODIUM,PORCINE (1 ML) 2,500 UNIT in SODIUM CHLORIDE 0.9% 250 ML IRRIGATION PRN (13:29)
[2024-10-12] MEDS: HEPARIN SODIUM,PORCINE 10,000 UNIT in SODIUM CHLORIDE 0.9% 1,000 ML IRRIGATION PRN (13:29)
[2024-10-12] MEDS: HEPARIN SODIUM 1,000 UN/ML (10ML VL) IVP ONE (13:32)
[2024-10-12] MEDS ORDERED: NALOXONE 0.4 MG/ML 1 ML VIAL IVP PRN (13:43)
--- NOTE | 2024-10-12 13:50 | P.PCN ---
Date of Procedure: 10/12/24 Operative Findings: Peripheral arterial angiogram Performing physician Danyel Guerrier MD Procedure performed Left lower extremity angiogram and right common femoral artery angiogram Ultrasound-guided access of the right common femoral artery Indication Left lower extremity intermittent claudication Approach Right common femoral artery Complication None Level of sedation Moderate with sedation length of 32 minutes Procedure description After obtaining informed consent the patient was brought to the cardiac Title Closer. The right common femoral artery was cannulated using micropuncture technique under ultrasound guidance a micropuncture wire passed easily then I placed a 6 Azeri 70 cm sheath at the right common femoral artery and subsequently I did advance an 035 stiff Glidewire with a rim catheter to the distal abdominal aorta and the wire was advanced to the left iliac and then left femoral artery and subsequently the sheath was advanced over the wire and the catheter to the left common femoral artery. Left lower extremity angiogram was performed and showed patent stent in the left SFA and popliteal with three- vessel runoff below the knee on the left side Left lower extremity angiogram The left SFA and left popliteal are patent with patent stents and three-vessel runoff below the knee on the left side Postprocedure management The patient will be scheduled to have a SENIOR PRINCIPAL SOFTWARE ENGINEER of the right SFA
[2024-10-12] MEDS: IOPAMIDOL-370 100ML BTL INJ ONE (13:57)
--- NOTE | 2024-10-12 14:12 | IR ---
EXAMINATION TYPE: IR angio abdominal w runoff DATE OF EXAM: 10/12/2024 1:56 PM COMPARISON: Pre Operative Images if available both CT/MRI or plain film CLINICAL INDICATION: Female, 73 years old with history of Lt leg pain, 4.0m/10.4DAP, Rt gr sheath sut ured in pressure; TECHNIQUE: IR angio abdominal w runoff, multiple fluoroscopic images provided for procedure. DAP: 10.4 mGym2 Gycm2 uGym2 cGycm2 or equivalent. FINDINGS: IMPRESSION: 1. Report was generated for administrative purposes only. 2. Please see the operative/procedural note for further details. [facility], , 10/12/2024 2:09 PM
[2024-10-12] MEDS: SODIUM CHLORIDE 0.9% 1,000 ML in EMPTY BAG 1 BAG IV SCH (17:13)
[2024-10-12 19:17] VITALS: BP 154/87; PULSE 77; RESP 18; TEMP 98
[2024-10-12] MEDS: ALPRAZolam 0.25 MG TAB PO PRN (20:04)
[2024-10-12] MEDS: ACETAMINOPHEN TAB 325 MG TAB PO PRN (20:17)
== END 2024-10-12 21:13 | disposition home or self-care (01) ==
LOC: CATHCVL 08:13 → 6NMEDSUR 13:40 → CATHCVL 21:13
PROVIDERS: ATTEND Internal Medicine Interventional Cardiology
DX: I70.212 Atherosclerosis of native arteries of extremities with intermittent claudication, left leg (principal); I10 Essential (primary) hypertension; I65.23 Occlusion and stenosis of bilateral carotid arteries; E78.5 Hyperlipidemia, unspecified; E11.51 Type 2 diabetes mellitus with diabetic peripheral angiopathy without gangrene; Z79.01 Long term (current) use of anticoagulants; Z79.84 Long term (current) use of oral hypoglycemic drugs; Z79.82 Long term (current) use of aspirin
CPT/HCPCS: 75710; 80048; 85025; J2250; J1644 ×3; J2003; Q9967

== ENCOUNTER 2024-10-19 11:11 | Day surgery (SDC) | payer MEDICARE ==
[~2024-10-19 11:11] MED LIST changes: +ALPRAZolam 0.25 MG TAB PO PRN; +ASPIRIN 325 MG TAB PO PRN; +HEPARIN SODIUM,PORCINE (1 ML) 2,500 UNIT in SODIUM CHLORIDE 0.9% 250 ML IRRIGATION PRN; +HEPARIN SODIUM,PORCINE 10,000 UNIT in SODIUM CHLORIDE 0.9% 1,000 ML IRRIGATION PRN
[2024-10-19] MEDS: SODIUM CHLORIDE 0.9% 1,000 ML in EMPTY BAG 1 BAG IV ONE (11:37)
[2024-10-19] MEDS: IV FLUID CONTINUATION 1,000 ML IV ONE (11:38)
[2024-10-19 12:06] LABS: Glucose,Whole Blood 125 mg/dL (70-110)
[2024-10-19] MEDS: LOSARTAN 50 MG TAB PO STA (12:18)
[2024-10-19] MEDS: CLOPIDOGREL 75 MG TAB PO STA (12:18)
[2024-10-19 12:27] LABS: Basophils # (A) 0.06 10*3/uL (0.00-0.10); Basophils % (A) 0.7 %; Eosinophils # (A) 0.17 10*3/uL (0.04-0.35); Eosinophils % (A) 2.1 %; HCT 39.6 % (37.2-46.3); HGB 12.9 g/dL (12.0-15.0); Lymphocytes # (A) 1.58 10*3/uL (0.90-5.00); Lymphocytes % (A) 19.7 %; MCH 28.8 pg (27.0-32.0); MCHC 32.6 g/dL (32.0-37.0); MCV 88.4 fL (80.0-97.0); Mean Platelet Volume 9.9 fL (9.5-12.2); Monocytes # (A) 0.71 10*3/uL (0.20-1.00); Monocytes % (A) 8.9 %; Neutrophils # (A) 5.43 10*3/uL (1.80-7.70); Neutrophils % (A) 67.9 %; Platelet Count 289 10*3/uL (140-440); RBC 4.48 10*6/uL (4.10-5.20); WBC 8.01 10*3/uL (4.50-10.00)
[2024-10-19 12:38] LABS: African American GFR (CKD) >90 (>60 ml/min/1.73 sqM); Anion Gap 7 mmol/L; Blood Urea Nitrogen 24 mg/dL (7-17); Carbon Dioxide 31 mmol/L (22-30); Chloride 101 mmol/L (98-107); Glucose 128 mg/dL (74-99); Non-African American GFR(CKD) 89 (>60 ml/min/1.73 sqM); Potassium 4.8 mmol/L (3.5-5.1); Sodium 139 mmol/L (137-145)
[2024-10-19] MEDS: fentaNYL (PF) 50 MCG/ML 2 ML AMP IVP ONE (14:25)
[2024-10-19] MEDS: MIDAZOLAM 2 MG/2 ML VIAL IVP ONE ×3 (14:26→15:50)
[2024-10-19] MEDS: HEPARIN SODIUM 1,000 UN/ML (10ML VL) IVP ONE (14:40)
[2024-10-19] MEDS: SODIUM CHLORIDE 0.9% 500 ML 500 ML with niCARdipine 6.25 MG, NITROGLYCERIN-D5W PMX 0.05... IV ONE (15:03)
[2024-10-19] MEDS: HYDROmorphone 1 MG/ML 1 ML SYRINGE IVP ONE ×2 (15:19)
[2024-10-19] MEDS: HYDROmorphone 0.5 MG/0.5 ML SYRINGE IVP ONE (15:39)
[2024-10-19] MEDS: niCARdipine Syringe (1,000 mcg/10 mL) INTRAARTER ONE (16:05)
[2024-10-19] MEDS: NITROGLYCERIN 1000MCG/10ML SYRINGE INTRAARTER ONE (16:05)
[2024-10-19] MEDS: IOPAMIDOL-370 100ML BTL INJ ONE (17:01)
[2024-10-19] MEDS ORDERED: MECLIZINE 25 MG TAB PO PRN (17:19)
[2024-10-19] MEDS: ACETAMINOPHEN TAB 500 MG TAB PO STA (17:41)
--- NOTE | 2024-10-19 18:14 | IR ---
EXAMINATION TYPE: IR stent intravas non coronary DATE OF EXAM: 10/19/2024 4:33 PM COMPARISON: Pre Operative Images if available both CT/MRI or plain film CLINICAL INDICATION: Female, 73 years old with history of LEG PAIN, 30.9M/22.1DAP,Lt gr sheath suture d in Rt pedal T; TECHNIQUE: IR stent intravas non coronary, multiple fluoroscopic images provided for procedure. DAP: 22.1DAP mGym2 Gycm2 uGym2 cGycm2 or equivalent. FINDINGS: IMPRESSION: 1. Report was generated for administrative purposes only. 2. Please see the operative/procedural note for further details. [facility], , 10/19/2024 6:11 PM
[2024-10-19] MEDS: ATORVASTATIN 40 MG TAB PO SCH (18:49)
[2024-10-19] MEDS: OXYBUTYNIN 10 MG TAB.ER.24 PO SCH (20:05)
[2024-10-19] MEDS: MONTELUKAST 10 MG TAB PO SCH (20:05)
--- NOTE | 2024-10-19 20:37 | P.PCN ---
Date of Procedure: 10/19/24 Operative Findings: Percutaneous peripheral arterial intervention Performing physician Danyel Madden MD Procedure performed 1. Successful recanalizing chronically occluded right SFA 2. Successful stenting of the right SFA 3. Adjunctive use of IVUS 4. Right lower extremity angiogram and left common femoral artery angiogram 5. Ultrasound-guided access of the left common femoral artery and right anterior tibial artery Indication Intermittent claudication interfering with the patient activity in this 73 old female patient who underwent an angiogram which revealed occluded right SFA Approach Left common femoral artery and right anterior tibial artery Complication None Level of sedation Moderate sedation length of 112 minutes Procedure description After obtaining informed consent the patient was brought to the cardiac Board Member. The left common femoral artery was cannulated using micropuncture technique under ultrasound guidance micropuncture wire passed easily then I placed a 6 Kittitian 70 cm sheath at the left common femoral artery and I did advance a 5 Kittitian rim catheter to the aortic bifurcation and subsequently the wire was advanced to the right profunda and that was 035 stiff Glidewire. Over the wire and the catheter I was able to advance the sheath to the right common femoral artery. Right lower extremity angiogram was performed and showed occluded right SFA and two-vessel was runoff below the knee on the right side. From the get go because the SFA has no stump proximally and this was a flush occlusion I was able to access the right anterior tibial artery using micropuncture technique under ultrasound guidance the micropuncture wire passed easily thin and placed slender 5/6 Kittitian sheath at the right anterior tibial artery with the SideArm connected into a cocktail including nitroglycerin and heparin and verapamil. Anticoagulation at that point systemically was performed using heparin. I was able to cross the UROLOGIST of the right SFA using a 3 5 stiff Glidewire with a backup support of 035 CXI catheter. I injected contrast through the catheter to prove that I was in the true lumen. After that I did exchange my 035 wire into a 1 4 wire and IVUS was performed which showed that I was in the subintimal space from the gate to go. With that I did not do atherectomy. I did balloon angioplasty using 5 mm balloon before I stented the SFA in the distal and mid and proximal portions using 6.0 x 140 and 6.0 x 140 and 7.0 x 60 mm Zilver PTX drug-coated stents where the stent was positioned under fluoroscopy guidance and deployed under fluoroscopy guidance. Postdilatation was performed using 5 mm balloon. An angiogram was performed and showed good angiographic results with intermediate to severe disease involving the right popliteal decided to treat medically. Subsequently I did exchanged my long sheath into short sheath using a 35 stiff Glidewire before I did selective left common femoral artery angiogram and the needle sheath was removed Postprocedure management Dual antiplatelet therapy Aggressive cholesterol control Risk factors modification Follow-up with the patient
[2024-10-19] MEDS: SODIUM CHLORIDE 0.9% 1,000 ML IV SCH (20:58)
[2024-10-20] MEDS: ACETAMINOPHEN TAB 500 MG TAB PO PRN (00:06)
[2024-10-20 07:39] LABS: Basophils # (A) 0.06 10*3/uL (0.00-0.10); Basophils % (A) 0.5 %; Eosinophils # (A) 0.17 10*3/uL (0.04-0.35); Eosinophils % (A) 1.5 %; HCT 36.9 % (37.2-46.3); HGB 11.7 g/dL (12.0-15.0); Lymphocytes # (A) 1.28 10*3/uL (0.90-5.00); Lymphocytes % (A) 10.9 %; MCH 28.8 pg (27.0-32.0); MCHC 31.7 g/dL (32.0-37.0); MCV 90.9 fL (80.0-97.0); Mean Platelet Volume 9.8 fL (9.5-12.2); Monocytes # (A) 0.94 10*3/uL (0.20-1.00); Neutrophils # (A) 9.18 10*3/uL (1.80-7.70); Neutrophils % (A) 78.5 %; Platelet Count 258 10*3/uL (140-440); RBC 4.06 10*6/uL (4.10-5.20); RDW 13.1 % (11.5-14.5)
[2024-10-20 07:55] LABS: African American GFR (CKD) >90 (>60 ml/min/1.73 sqM); Anion Gap 6 mmol/L; Blood Urea Nitrogen 22 mg/dL (7-17); Calcium 9.1 mg/dL (8.4-10.2); Carbon Dioxide 28 mmol/L (22-30); Chloride 103 mmol/L (98-107); Glucose 144 mg/dL (74-99); Non-African American GFR(CKD) 89 (>60 ml/min/1.73 sqM); Potassium 4.4 mmol/L (3.5-5.1); Sodium 137 mmol/L (137-145)
[2024-10-20] MEDS ORDERED: ASPIRIN 81 MG PO SCH (09:00)
[2024-10-20] MEDS: PANTOPRAZOLE 40 MG TABLET PO SCH (10:14)
[2024-10-20] MEDS: CLOPIDOGREL 75 MG TAB PO SCH (10:15)
[2024-10-20] MEDS: LOSARTAN 50 MG TAB PO SCH (10:18)
[2024-10-20 11:43] VITALS: BP 131/82; PULSE 88; RESP 18; TEMP 97.2
[2024-10-20] MEDS: ASPIRIN 81 MG PO SCH (12:10)
--- NOTE | 2024-10-20 12:47 | P.DS ---
Providers Attending physician: Danyel Guerrier Primary care physician: [facility]erto [facility] Hospital Course: This is a 73-year-old female who underwent stenting of the right SFA yesterday with Dr. Guerrier. Patient examined this morning the bedside. Patient denies any chest pain or pressure. She denies any shortness of breath. Vital signs are stable. The patient was deemed stable for discharge home today from a cardiac standpoint. Please see EMR for further hospital course details. Discharge diagnosis Peripheral arterial disease, status post stenting of right SFA Nurse practitioner note has been reviewed by physician. Signing provider agrees with the documented findings, assessment, and plan of care documented by BIOMEDICAL ELECTRONICS TECHNICIAN as a scribe. Plan - Discharge Summary Discharge Rx Participant: No New Discharge Prescriptions: Continue Atorvastatin [Lipitor] 40 mg PO HS Calcium Carbonate [Calcium] 1,200 mg PO DAILY Cholecalciferol (Vitamin D3) [Vitamin D3] 50 mcg PO DAILY Montelukast [Singulair] 10 mg PO QAM Ascorbic Acid [Vitamin C] 1,000 mg PO DAILY Losartan Potassium [Cozaar] 100 mg PO QAM Meclizine [Antivert] 25 mg PO TID PRN PRN Reason: dizziness Clopidogrel [Plavix] 75 mg PO DAILY tab Psyllium Husk [Fiber Capsule] 0.4 gm PO DAILY Multivit-Min/Iron/FA/Vit K/Lut [Centrum Women 50 Plus Minis Tb] 1 each PO DAILY Cyanocobalamin (Vitamin B-12) [Vitamin B-12] 1,000 mcg PO DAILY Aspirin [Adult Low Dose Aspirin EC] 81 mg PO W/LUNCH Pantoprazole Sodium 40 mg PO QAM Oxybutynin Chloride [oxyBUTYnin chloride ER] 10 mg PO BID metFORMIN HCL 1,000 mg PO DAILY@1200 Discharge Medication List Atorvastatin [Lipitor] 40 mg PO HS 12/19/16 [History] Calcium Carbonate [Calcium] 1,200 mg PO DAILY 12/19/16 [History] Cholecalciferol (Vitamin D3) [Vitamin D3] 50 mcg PO DAILY 12/19/16 [History] Montelukast [Singulair] 10 mg PO QAM 12/19/16 [History] Ascorbic Acid [Vitamin C] 1,000 mg PO DAILY 11/22/21 [History] Aspirin [Adult Low Dose Aspirin EC] 81 mg PO W/LUNCH 11/22/21 [History] Losartan Potassium [Cozaar] 100 mg PO QAM 11/22/21 [History] Meclizine [Antivert] 25 mg PO TID PRN 11/22/21 [History] Clopidogrel [Plavix] 75 mg PO DAILY tab 12/05/21 [Rx] Oxybutynin Chloride [oxyBUTYnin chloride ER] 10 mg PO BID 07/26/24 [History] Pantoprazole Sodium 40 mg PO QAM 07/26/24 [History] Cyanocobalamin (Vitamin B-12) [Vitamin B-12] 1,000 mcg PO DAILY 09/12/24 [ History] Multivit-Min/Iron/FA/Vit K/Lut [Centrum Women 50 Plus Minis Tb] 1 each PO DAILY 09/12/24 [History] Psyllium Husk [Fiber Capsule] 0.4 gm PO DAILY 09/12/24 [History] metFORMIN HCL 1,000 mg PO DAILY@1200 09/12/24 [History] Follow up Appointment(s)/Referral(s): Danyel Guerrier MD [STAFF PHYSICIAN] - 10/25/24 9:45 am (FOLLOW UP APPOINTMENT MADE. ) Patient Instructions/Handouts: Peripheral Vascular Angioplasty (DC), Peripheral Vascular Stent Placement (DC) Activity/Diet/Wound Care/Special Instructions: NO METFORMIN FOR 48 HOURS.
== END 2024-10-20 12:55 | disposition home or self-care (01) ==
LOC: CATHCVL 11:11 → 3SCARD 16:10 → CATHCVL 10-20 12:55
PROVIDERS: ATTEND Internal Medicine Interventional Cardiology
DX: I73.9 Peripheral vascular disease, unspecified (principal); I65.23 Occlusion and stenosis of bilateral carotid arteries; I10 Essential (primary) hypertension; E78.5 Hyperlipidemia, unspecified; E11.8 Type 2 diabetes mellitus with unspecified complications; Z82.49 Family history of ischemic heart disease and other diseases of the circulatory system; Z79.02 Long term (current) use of antithrombotics/antiplatelets; Z79.84 Long term (current) use of oral hypoglycemic drugs; Z79.82 Long term (current) use of aspirin; Z79.899 Other long term (current) drug therapy
CPT/HCPCS: 37226; 75710; 37252; 80048 ×2; 85025 ×2; C1894 ×3; C1769 ×3; C1887; C1725; C1753; C1874 ×2; J2250; J3010; J1644 ×2; J1171 ×2; Q9967; J2305 ×2

== ENCOUNTER → 2024-11-08 | Outpatient (CLI) | payer MEDICARE ==
--- NOTE | 2024-11-08 15:17 | MM ---
Reason for Exam: Screening (asymptomatic). Last mammogram was performed 1 year(s) and 1 month(s) ago. Patient History: Menarche at age 12. First Full-Term at age 19. Postmenopausal. Breast cancer, left, age 50. Previous chest radiation therapy at age 50. Previous chemotherapy at age 50. 10/07/2000, Malignant Excisional Biopsy on the left side. 04/11/1999, Benign Stereotactic Core Biopsy on the left side. Radiation Therapy, left. Chemotherapy. Sister had breast cancer, age 49. Tissue Density: There are scattered areas of fibroglandular density. Findings: Stable diminished size of left breast with distortion and surgical clips in the upper outer aspect. There are additional scattered small benign-appearing round and linear calcifications bilaterally redemonstrated. There is enlarging 14 mm focal asymmetry near surgical clips along the outer slightly upper aspect in the left breast. Overall Assessment: Incomplete: need additional imaging evaluation, BI-RAD 0 Management: Diagnostic Mammogram of the left breast. Diagnostic Breast Ultrasound of the left breast. Return for additional spot 3-D and 3-D true lateral view along with targeted ultrasound of the left breast. Developing mass needs to be considered. Patient should continue monthly self-breast exams. A clinical breast exam by your physician is recommended on an annual basis. This exam should not preclude additional follow-up of suspicious palpable abnormalities. Note on Haley scores and lifetime risk: 1. A Haley score greater than 3% is considered moderate risk. If this is the case, consider specialist referral to assess eligibility for a risk reducing agent. 2. If overall lifetime risk for the development of breast cancer is 20% or higher, the patient may qualify for future screening with alternating mammogram and breast MRI. [facility], , 11/08/2024 3:15 PM. Electronically signed and approved by: Nickolas Puga M.D.
== END | disposition home or self-care (01) ==
LOC: RADMAMWWP 13:55
PROVIDERS: ATTEND Family Medicine
DX: Z12.31 Encounter for screening mammogram for malignant neoplasm of breast (principal); R92.323 Mammographic fibroglandular density, bilateral breasts; R92.1 Mammographic calcification found on diagnostic imaging of breast; Z78.0 Asymptomatic menopausal state; Z80.3 Family history of malignant neoplasm of breast; Z85.3 Personal history of malignant neoplasm of breast
CPT/HCPCS: 77063; 77067

== ENCOUNTER → 2024-11-11 | Outpatient (CLI) | payer MEDICARE ==
--- NOTE | 2024-11-11 15:31 | MM ---
Reason for Exam: Additional evaluation requested from abnormal screening. Last screening mammogram was performed less than 1 month ago. Patient History: Menarche at age 12. First Full-Term at age 19. Postmenopausal. Breast cancer, left, age 50. Previous chest radiation therapy at age 50. Previous chemotherapy at age 50. 10/07/2000, Malignant Excisional Biopsy on the left side. 04/11/1999, Benign Stereotactic Core Biopsy on the left side. Radiation Therapy, left. Chemotherapy. Sister had breast cancer, age 49. Prior Study Comparison: 09/23/2023 Bilateral MG 3D screening mammo w/cad, [facility]. 04/21/2024 Left MG 3D diag mammo w/cad LT, [facility]. 11/08/2024 Bilateral MG 3D screening mammo wo cad, [facility]. Tissue Density: Left: There are scattered areas of fibroglandular density. Findings: Analyzed By CAD. Suspicious focal asymmetry measuring approximately 15 mm persists approximately 6-7 cm distance from nipple along the posterior outer aspect of the prior scar. Overall Assessment: Incomplete: need additional imaging evaluation, BI-RAD 0 Management: Diagnostic Breast Ultrasound of the left breast. . Results were given to the patient verbally at the time of exam. Patient should continue monthly self-breast exams. A clinical breast exam by your physician is recommended on an annual basis. This exam should not preclude additional follow-up of suspicious palpable abnormalities. Note on Haley scores and lifetime risk: 1. A Haley score greater than 3% is considered moderate risk. If this is the case, consider specialist referral to assess eligibility for a risk reducing agent. 2. If overall lifetime risk for the development of breast cancer is 20% or higher, the patient may qualify for future screening with alternating mammogram and breast MRI. [facility], , 11/11/2024 3:27 PM. Electronically signed and approved by: Nickolas Puga M.D.
--- NOTE | 2024-11-11 15:50 | USB ---
Reason for Exam: Additional evaluation requested from prior study. Patient History: Menarche at age 12. First Full-Term at age 19. Postmenopausal. Breast cancer, left, age 50. Previous chest radiation therapy at age 50. Previous chemotherapy at age 50. 10/07/2000, Malignant Excisional Biopsy on the left side. 04/11/1999, Benign Stereotactic Core Biopsy on the left side. Radiation Therapy, left. Chemotherapy. Sister had breast cancer, age 49. Technique: Method: Targeted. Prior Study Comparison: 09/23/2023 Bilateral MG 3D screening mammo w/cad, [facility]. 04/21/2024 Left MG 3D diag mammo w/cad LT, [facility]. 11/08/2024 Bilateral MG 3D screening mammo wo cad, [facility]. Findings: The lateral section of the breast of the left breast, the axilla of the left breast and the retroareolar of the left breast were scanned. Targeted ultrasound was performed. Adjacent to scar tissue 2:00 position 9 cm distance from nipple there is a 1.6 x 1.2 x 1.4 cm lobulated hypoechoic mass with some vascularity and no significant posterior features believed to be corresponding to the new mammogram abnormality. Overall Assessment: Suspicious, BI-RAD 4 Management: Ultrasound Core Biopsy of the left breast. Advise tissue sampling of new area of concern. A clinical breast exam by your physician is recommended on an annual basis and results should be correlated with mammographic findings. This exam should not preclude additional follow-up of suspicious palpable abnormalities. Results were given to the patient verbally at the time of exam. [facility], , 11/11/2024 3:47 PM. Electronically signed and approved by: Nickolas Puga M.D.
== END | disposition home or self-care (01) ==
LOC: RADMAMWWP 14:53
PROVIDERS: ATTEND Family Medicine
DX: R92.8 Other abnormal and inconclusive findings on diagnostic imaging of breast (principal); R92.323 Mammographic fibroglandular density, bilateral breasts; Z78.0 Asymptomatic menopausal state; Z85.3 Personal history of malignant neoplasm of breast; Z80.3 Family history of malignant neoplasm of breast
CPT/HCPCS: 77061; 77065

== ENCOUNTER → 2025-01-23 | Day surgery (SDC) | payer MEDICARE ==
--- NOTE | 2025-02-01 08:33 | MM ---
Reason for Exam: Post Procedure Mammogram. Last screening mammogram was performed 3 month(s) ago. Patient History: Menarche at age 12. First Full-Term at age 19. Postmenopausal. Breast cancer, left, age 50. Previous chest radiation therapy at age 50. Previous chemotherapy at age 50. 10/07/2000, Malignant Excisional Biopsy on the left side. 04/11/1999, Benign Stereotactic Core Biopsy on the left side. Radiation Therapy, left. Chemotherapy. Sister had breast cancer, age 49. Prior Study Comparison: 01/10/2019 Bilateral Screening Mammogram, [facility]. 06/08/2020 Bilateral Diagnostic Mammogram, [facility]. 06/10/2021 Bilateral Diagnostic Mammogram, [facility]. 09/16/2022 Bilateral MG 3D screening mammo w/cad, [facility]. 09/23/2023 Bilateral MG 3D screening mammo w/cad, [facility]. 04/21/2024 Left MG 3D diag mammo w/cad LT, [facility]. 11/08/2024 Bilateral MG 3D screening mammo wo cad, [facility]. 11/11/2024 Left MG 3D work up w/cad LT, [facility]. Tissue Density: Left: There are scattered areas of fibroglandular density. Pathology Description: Location: 2 o'clock. Marker Left Behind. Needle Type: Celero Cores: 4 Gauge: 12 The procedure of ultrasound guided core biopsy was explained to the patient. Benefits, alternatives, and risks were discussed. An informed consent was then obtained. The patient was placed in supine positioning for imaging and for the procedure. The overlying skin was prepped and draped in usual sterile fashion. Lidocaine buffered with bicarbonate was used as anesthetic into the skin and subcutaneous tissue up to area of concern in the left breast. A evy was made with surgical scalpel. Under ultrasound guidance, a 12-gauge vacuum assisted biopsy gun device was used to obtain 4 core samples. Following this, a biopsy clip was left in lesion. The patient tolerated the procedure well without any immediate complication. The patient was kept in the radiology department for short stay after the procedure and then discharged home in stable condition. Postprocedure mammogram: The patient was transferred to mammography for physician ordered post procedure mammogram for clip placement verification. Post procedure mammogram demonstrates the clip in appropriate placement. Impression: Successful, uncomplicated ultrasound guided core biopsy of area of concern in the left breast, full pathology results to follow. [facility], , 01/23/2025 2:11 PM. Pathology Results: Result: Malignant, Invasive ductal carcinoma. Pathology and radiology were reviewed. Findings are concordant. LEFT BREAST, 2:00, CORE BIOPSY: Invasive moderately differentiated ductal carcinoma (Grade 2). See Surgical Pathology Cancer Case Summary. Overall Assessment: Malignant Assessment: MG diagnostic mammo LT wo CAD. - Left: Known biopsy proven malignancy, BI-RAD 6. Management: Surgical Consultation of the left breast. Electronically signed and approved by: Howard Montana M.D. Radiologis
== END ==
LOC: RADUSWWP 12:16
PROVIDERS: ATTEND Surgery
DX: C50.212 Malignant neoplasm of upper-inner quadrant of left female breast (principal); R92.8 Other abnormal and inconclusive findings on diagnostic imaging of breast; Z78.0 Asymptomatic menopausal state; Z80.3 Family history of malignant neoplasm of breast
CPT/HCPCS: 88305; 88342; 88341; 77065; 19083; A4648

== ENCOUNTER → 2025-02-02 | Outpatient (CLI) | payer MEDICARE ==
[2025-02-02 08:17] VITALS: BP 150/86; PULSE 79; RESP 16; TEMP 97.8
--- NOTE | 2025-02-02 09:06 | P.PN ---
Subjective Progress Note Date: 02/02/25 Principal diagnosis: left breast IDC abnormal left breast ultrasound Requesting physician: Heriberto Walls History of present illness: Maricruz is a 74 year old female seen in consultation for Dr. Walls. She had a bilateral mammogram on 11-08-24 which showed an enlarging 14 mm asymmetry near surgical clips on the left side. She had an ultrasound of the area on 11-11 which showed a 1.6 by 1.4 by 1.2 cm lesion in the left breast and biopsy recommended. She had a left breast cancer at age 50 and was treated with chemotherapy and radiation therapy. She had a benign core biopsy of the left breast in the past. In 1998 she had a lumpectomy and SNB . Was done at [facility]. She had chemotherapy and radiation therapy. She was doing well until this most recent mammogram and ultrasound. She thought she may have felt something in the left breast and that precipitated the radiographic studies. She has not had any other surgery on her breast. No nipple discharge or skin changes, no recent trauma or infection in the breast. Core biopsy of the area of concern was performed on 01-23-2025. This revealed an invasive ductal carcinoma ER/IL positive HER2 pending. The size of the lesion is believed to be under 2 cm based on her ultrasound. Caffeine: 2 cups/day nicotine: none chocolate: several times a week BCP: none hormones: not take any hormone therapy Family History: sister: breast cancer at 49 brother: throat cancer mother: uterine cancer maternal aunt: breast cancer Hormonal History: menarche: 12 , breast fed: no age at first : 19 Menopause: 50 hormones: none Surgical History: left breast lumpectomy and SNB stints in both of legs arteries blocked (Dr. Madden) tumor groin broken ankle Medical History: on blood thinners for stints in her legs diabetes Social History: nicotine: none alcohol: none drugs: none Review of Systems - Constitutional Denies fever, Denies weight loss - EENT EENT Comment(s): cataract surgery bilateral Eyes: denies blurred vision Ears: bilateral: tinnitus, deny: decreased hearing Ears, nose, mouth and throat: Denies dysphagia - Breasts bilateral: as per HPI - Cardiovascular Denies chest pain, Denies shortness of breath - Respiratory Denies cough - Gastrointestinal Reports as per HPI, Reports constipation - Genitourinary Genitourinary: Denies dysuria, Denies hematuria Menstruation: Reports postmenopausal - Musculoskeletal Musculoskeleta Comment(s): stints in bilateral legs atherosclerotic disease Reports as per HPI - Integumentary Integumentary Comment(s): on blood thinners Reports unusual bruising, Denies rash - Neurological Denies headaches, Denies syncope - Psychiatric Reports as per HPI - Endocrine Reports as per HPI - Hematologic/Lymphatic Reports as per HPI - Allergic/Immunologic Reports seasonal allergies Past Medical History Past Medical History: Cancer, Diabetes Mellitus, Hyperlipidemia, Hypertension, Vascular Disorder Additional Past Medical History / Comment(s): Hx left breast cancer 2001- tx with CHEMO and RADIATION, vertigo, PVD-bilateral leg pain. History of Any Multi-Drug Resistant Organisms: None Reported Past Surgical History: Breast Surgery, Orthopedic Surgery Additional Past Surgical History / Comment(s): Left breast lumpectomy, left ankle ORIF, benign left groin tumor removed, has vascular 1 stent in each leg, colonoscopy, [facility]. angiogram last week. 3 stentd in left leg -2024. Past Anesthesia/Blood Transfusion Reactions: No Reported Reaction Additional Past Anesthesia/Blood Transfusion Reaction / Comm: Hx of vertigo. No hx of blood transfusion to date. Past Psychological History: No Psychological Hx Reported Smoking Status: Former smoker Past Alcohol Use History: None Reported Additional Past Alcohol Use History / Comment(s): Quit smoking many years ago. Past Drug Use History: None Reported - Past Family History Sister(s) Family Medical History: Cancer Additional Family Medical History / Comment(s): Breast cancer. Brother(s) Family Medical History: Cancer Additional Family Medical History / Comment(s): Throat cancer. Mother Family Medical History: Cancer, CVA/TIA Additional Family Medical History / Comment(s): Uterine cancer. Medications and Allergies Home Medications Medication Instructions Recorded Confirmed Type Atorvastatin [Lipitor] 40 mg PO HS 12/19/16 12/15/24 History Calcium Carbonate [Calcium] 1,200 mg PO DAILY 12/19/16 12/15/24 History Cholecalciferol (Vitamin D3) 50 mcg PO DAILY 12/19/16 12/15/24 History [Vitamin D3] Montelukast [Singulair] 10 mg PO QAM 12/19/16 12/15/24 History Ascorbic Acid [Vitamin C] 1,000 mg PO DAILY 11/22/21 12/15/24 History Aspirin [Adult Low Dose Aspirin EC] 81 mg PO W/LUNCH 11/22/21 12/15/24 History Losartan Potassium [Cozaar] 100 mg PO QAM 11/22/21 12/15/24 History Meclizine [Antivert] 25 mg PO TID 11/22/21 12/15/24 History Clopidogrel [Plavix] 75 mg PO DAILY tab 12/05/21 12/15/24 Rx Oxybutynin Chloride [oxyBUTYnin 5 mg PO DAILY 07/26/24 12/15/24 History chloride ER] Pantoprazole Sodium 40 mg PO QAM 07/26/24 12/15/24 History Cyanocobalamin (Vitamin B-12) 1,000 mcg PO DAILY 09/12/24 12/15/24 History [Vitamin B-12] Multivit-Min/Iron/FA/Vit K/Lut 1 each PO DAILY 09/12/24 12/15/24 History [Centrum Women 50 Plus Minis Tb] Psyllium Husk [Fiber Capsule] 0.4 gm PO DAILY 09/12/24 12/15/24 History metFORMIN HCL 1,000 mg PO DAILY@1200 09/12/24 12/15/24 History Allergies Allergy/AdvReac Type Severity Reaction Status Date / Time No Known Allergies Allergy Verified 12/15/24 14:53 Objective - Vital Signs Vital signs: Vital Signs Temp 97.8 F 02/02/25 08:14 Pulse 79 02/02/25 08:14 Resp 16 02/02/25 08:14 BP 150/86 02/02/25 08:14 Pulse Ox 95 02/02/25 08:14 FiO2 Intake & Output 02/01/25 02/02/25 02/02/25 18:59 06:59 18:59 Weight 73.936 kg - Constitutional General appearance: Present: cooperative - EENT Eyes: Present: EOMI ENT: Present: hearing grossly normal - Neck Neck: Present: normal ROM - Respiratory Respiratory: bilateral: CTA - Cardiovascular Rhythm: regular Heart sounds: normal: S1, S2 - Integumentary Integumentary: Present: normal turgor - Musculoskeletal Musculoskeletal: Present: gait normal - Psychiatric Psychiatric: Present: A&O x's 3, appropriate affect, intact judgment & insight - Additional findings Additional findings: Breast Exam; BRA: sports bra XLarge inspection: Left breast smaller than right breast related to cancer treatment; biopsy site clean and dry Bilateral grade 3 ptosis on the right grade 2 ptosis on the left Palpation: Right breast: Multi positional exam no dominant masses or nodules of concern Right axilla: No adenopathy of concern Left breast: Multi positional exam postsurgical and radiation changes with increased nodularity near lumpectomy site Left axilla: No adenopathy of concern Assessment and Plan Assessment: Impression: Prior history of left breast invasive ductal carcinoma Radiographic abnormality left breast Asymmetry of the breast Nodularity left breast at lumpectomy site Family history of cancer Diabetes Atherosclerotic disease of the lower extremities with stents placed in October Left breast invasive ductal carcinoma near prior lumpectomy site Plan: Clearance from cardiology patient is presently on aspirin and Plavix genetic testing present case at tumor board Ultrasound left axilla rule out enlarged lymph nodes Appointment plastic surgery Scheduled for left breast mastectomy with immediate implant reconstruction pathology report from [facility] 24 years ago cell phone number patient: Surgical options were discussed with the patient and her boyfriend, at this time she would prefer to have a mastectomy and implant reconstruction. CC: Dr. Walls
== END ==
LOC: WWCWWP 08:06
PROVIDERS: ATTEND Surgery
DX: C50.912 Malignant neoplasm of unspecified site of left female breast (principal); N64.89 Other specified disorders of breast; E11.9 Type 2 diabetes mellitus without complications; I70.90 Unspecified atherosclerosis; Z98.890 Other specified postprocedural states; Z80.9 Family history of malignant neoplasm, unspecified; Z85.3 Personal history of malignant neoplasm of breast; Z87.891 Personal history of nicotine dependence

== ENCOUNTER → 2025-02-02 | Outpatient (CLI) | payer MEDICARE ==
--- NOTE | 2025-02-02 11:26 | USB ---
Patient History: Menarche at age 12. First Full-Term at age 19. Postmenopausal. Breast cancer, left, age 50. Breast cancer, left, age 74. Previous chest radiation therapy at age 50. Previous chemotherapy at age 50. 01/23/2025, Malignant US biopsy breast VAD LT on the left side. 10/07/2000, Malignant Excisional Biopsy on the left side. 04/11/1999, Benign Stereotactic Core Biopsy on the left side. Radiation Therapy, left. Chemotherapy. Sister had breast cancer, age 49. Technique: Method: Targeted. Prior Study Comparison: 11/08/2024 Bilateral MG 3D screening mammo wo cad, [facility]. 11/11/2024 Left MG 3D work up w/cad LT, [facility]. 01/23/2025 Left MG diagnostic mammo LT wo CAD., [facility]. Findings: The axilla of the left breast was scanned. Technique utilized:US breast axilla LT Image; ultrasound imaging of the left axilla No lymphadenopathy identified. No suspicious masses. Overall Assessment: Negative, BI-RAD 1 Management: No follow up is required for this exam. A clinical breast exam by your physician is recommended on an annual basis and results should be correlated with mammographic findings. This exam should not preclude additional follow-up of suspicious palpable abnormalities. Results were given to the patient verbally at the time of exam. [facility], , 02/02/2025 11:23 AM. Electronically signed and approved by: Remi Cornejo DO
== END | disposition home or self-care (01) ==
LOC: RADUSWWP 10:52
PROVIDERS: ATTEND Surgery
DX: Z85.3 Personal history of malignant neoplasm of breast (principal); Z78.0 Asymptomatic menopausal state; Z80.3 Family history of malignant neoplasm of breast